=== PATIENT | female | born 1965 | race Caucasian/White ===

== ENCOUNTER 2019-01-17 18:01 | Inpatient (IN) ==
[2019-01-17] MEDS ORDERED: *HR* EPINEPHrine 0.3 MG/0.3 ML (PEN) IM PRN (23:36)
[2019-01-18] MEDS: Ipratropium Neb 0.5 MG NEBULIZER IH SCH ×3 (01:15→16:34)
[2019-01-18] MEDS: *HR* OxyCODONE Immed Rel 5 MG TABLET PO SCH ×6 (01:26→23:06)
[2019-01-18 05:35] LABS: Basophils # 0.1 K/mcL (0.0-0.2); Basophils % 0.8 %; Eosinophils # 0.2 K/mcL (0.0-0.6); Eosinophils % 3.9 %; Hematocrit 35.9 % (35.3-44.9); Hemoglobin 10.6 g/dL (11.5-15.4); Immature Granulocytes % 1.1 % (0-4); Lymphocytes # 1.9 K/mcL (0.6-4.6); Lymphocytes % 30.6 %; Mean Corpuscular HGB Conc 29.5 g/dL (31.6-35.5); Mean Corpuscular Hemoglobin 22.7 pg (28.0-33.3); Mean Corpuscular Volume 76.9 fL (83.0-100.0); Mean Platelet Volume 10.5 fL (9.4-12.4); Monocytes # 0.4 K/mcL (0.0-1.3); Monocytes % 5.7 %; Neutrophils # 3.6 K/mcL (1.6-8.9); Platelet Count 233 K/mcL (140-400); Red Blood Count 4.67 M/mcL (3.82-4.97); Red Cell Distribution Width 18.6 % (11.5-14.5); Segmented Neutrophils % 57.9 %; White Blood Count 6.2 K/mcL (4.3-11.1)
[2019-01-18 05:43] LABS: INR 1.2; Prothrombin Time 13.1 Seconds (9.4-12.1)
[2019-01-18 05:46] LABS: Activated Partial Thrombo Time 35.7 Seconds (26.0-36.0)
[2019-01-18 06:00] LABS: eGFR For African Americans > 60 (> 60); eGFR For Non-African Americans 54 (> 60)
[2019-01-18] MEDS ORDERED: levETIRAcetam 250 MG TABLET PO SCH (09:00)
[2019-01-18] MEDS ORDERED: Spironolactone 25 MG TABLET PO SCH (09:00)
[2019-01-18] MEDS: Metoprolol XL (24 HR) Succ 50 MG TAB.ER.24H PO SCH (09:26)
[2019-01-18] MEDS: Cholecalciferol (D-3) 1,000 UNIT (25MCG) TABLET PO SCH (09:26)
[2019-01-18] MEDS: *HR* Amiodarone 200 MG TABLET PO SCH (09:27)
[2019-01-18] MEDS: Gabapentin 300 MG CAPSULE PO SCH ×3 (09:29→20:01)
[2019-01-18] MEDS: *HR* Insulin Regular U-500 500 UNIT/ML SQ SCH ×5 (09:43→19:08)
[2019-01-18] MEDS: Budesonide/Formoterol 160/4.5 1 PUFF INH IH SCH ×2 (10:42→21:01)
[2019-01-18] MEDS ORDERED: *HR* Warfarin 2.5 MG TABLET PO ONE (18:00)
[2019-01-18] MEDS ORDERED: *HR* Dextrose 50 % in Water (Syg) 50 ML SYRINGE IVP PRN (19:04)
[2019-01-18] MEDS ORDERED: Dextrose Gel 15 GM/37.5 ML TUBE PO PRN (19:05)
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
[2019-01-18] MEDS ORDERED: Albuterol 2.5 MG/3 ML NEBULIZER IH PRN (20:02)
[2019-01-18] MEDS: levETIRAcetam 250 MG TABLET PO SCH (20:05)
[2019-01-18] MEDS ORDERED: *HR* Warfarin 5 MG TABLET PO ONE (21:11)
[2019-01-19 06:28] LABS: Uric Acid 5.6 mg/dL (2.3-7.6)
[2019-01-19] MEDS ORDERED: *HR* Dextrose 50 % in Water (Vial) 50 ML VIAL IVP PRN ×2 (07:45→12:54)
[2019-01-19] MEDS: Gabapentin 300 MG CAPSULE PO SCH ×3 (08:20→20:59)
[2019-01-19] MEDS: *HR* OxyCODONE Immed Rel 5 MG TABLET PO SCH ×4 (08:20→21:03)
[2019-01-19] MEDS: Metoprolol XL (24 HR) Succ 50 MG TAB.ER.24H PO SCH (08:20)
[2019-01-19] MEDS: Cholecalciferol (D-3) 1,000 UNIT (25MCG) TABLET PO SCH (08:20)
[2019-01-19] MEDS: *HR* Amiodarone 200 MG TABLET PO SCH ×2 (08:22→21:24)
[2019-01-19 09:13] LABS: Folate 5.2 ng/mL (3.0-16.0)
[2019-01-19] MEDS: Budesonide/Formoterol 160/4.5 1 PUFF INH IH SCH ×2 (10:02→20:55)
[2019-01-19] MEDS ORDERED: Dextrose Gel 15 GM/37.5 ML TUBE PO PRN ×2 (12:54)
[2019-01-19] MEDS ORDERED: D5% in Water 1,000 ML IVC PRN (12:54)
[2019-01-19] MEDS ORDERED: MOM Conc 10 ML UD.LIQ PO ONE (14:59)
--- NOTE | 2019-01-19 15:09 | Internal Med Progress Note ---
Date of Encounter: 01/19/19 Time of Encounter: 15:00 - Assessment and plan (1) Anemia Current Visit: No Status: Acute Assessment and plan: January 19. Anemia testing shows iron 28, transferrin saturation 8%, transferrin 254, ferritin 13, B12 337, and folate 5.2. Start ferrous sulfate with ascorbic acid in a.m. Qualifiers: Anemia type: unspecified type Qualified Code(s): D64.9 - Anemia, unspecified (2) CKD (chronic kidney disease) stage 3, GFR 30-59 ml/min Current Visit: Yes Status: Chronic Assessment and plan: January 19. Monitor renal indices periodically (3) Hypertension Current Visit: Yes Status: Chronic Assessment and plan: January 19. Continue Cozaar and Toprol Qualifiers: Hypertension type: essential hypertension Qualified Code(s): I10 - Essential (primary) hypertension (4) COPD (chronic obstructive pulmonary disease) Current Visit: No Status: Chronic Assessment and plan: January 19. Continue Symbicort Qualifiers: COPD type: unspecified COPD Qualified Code(s): J44.9 - Chronic obstructive pulmonary disease, unspecified (5) Seizure disorder Current Visit: No Status: Chronic Assessment and plan: January 19. Status post vagal nerve stimulator placement. Continue Keppra. (6) Heart failure Current Visit: No Status: Chronic Assessment and plan: January 19. BN peptide improved to 101. Continue present Rx. Qualifiers: Qualified Code(s): I50.9 - Heart failure, unspecified (7) Type 2 diabetes mellitus Current Visit: No Status: Chronic Assessment and plan: January 19. Hemoglobin A1c was 9.3% on 01/15/2019. She has been started on Levemir. Continue Accu-Cheks with SSI. Qualifiers: Diabetes mellitus terminal gauger insulin use: with shelter use Diabetes mellitus complication status: with kidney complications Diabetes mellitus complication detail: with chronic kidney disease Chronic kidney disease stage: stage 3 (moderate) Qualified Code(s): E11.22 - Type 2 diabetes mellitus with diabetic chronic kidney disease; N18.3 - Chronic kidney disease, stage 3 (moderate); Z79.4 - residential (current) use of insulin (8) PAF (paroxysmal atrial fibrillation) Current Visit: No Status: Chronic Assessment and plan: January 19. Continue amiodarone and Coumadin. (9) Paraplegia Current Visit: No Status: Chronic Assessment and plan: January 19. Continue PT and OT intervention. - Subjective Interval history: January 19. She has no new complaints. - Constitutional Vitals: Temp Pulse Resp BP Pulse Ox 98.4 F 72 16 115/66 93 01/19/19 06:35 01/19/19 06:35 01/19/19 12:39 01/19/19 06:35 01/19/19 12:39 Exam: She is resting comfortably in bed and appears in no acute distress. Her affect is bright and cheerful. I reviewed her medications and lab results. Internal Medicine: Result - Labs CBC & Chem 7: 01/18/19 05:27 01/18/19 05:27 - ABG Interpretation ABG results: PT/INR, D-dimer PT 13.1 Seconds (9.4-12.1) H 01/18/19 05:27 Consult Discharge Plan - Plan Referrals: Apolonia Aguero, MINE WIRER [Primary Care Provider] - 1 week
[2019-01-19] MEDS: *HR* Warfarin 3 MG TABLET PO SCH (16:54)
[2019-01-19] MEDS: Insulin LISPRO 300 UNITS/3 ML VIAL SQ SCH ×2 (16:55→21:03)
[2019-01-19] MEDS: levETIRAcetam 250 MG TABLET PO SCH (20:58)
[2019-01-19] MEDS: Insulin DETEMIR 100 UNIT/ML X5UNITS SQ SCH (21:07)
[2019-01-20] MEDS: *HR* OxyCODONE Immed Rel 5 MG TABLET PO SCH ×5 (00:25→20:56)
[2019-01-20] MEDS: Ascorbic Acid 500 MG TABLET PO SCH (05:25)
[2019-01-20] MEDS: Cholecalciferol (D-3) 1,000 UNIT (25MCG) TABLET PO SCH (08:15)
[2019-01-20] MEDS: Metoprolol XL (24 HR) Succ 50 MG TAB.ER.24H PO SCH (08:16)
[2019-01-20] MEDS: *HR* Amiodarone 200 MG TABLET PO SCH ×2 (08:16→20:54)
[2019-01-20] MEDS: Insulin DETEMIR 100 UNIT/ML X5UNITS SQ SCH ×2 (08:16→20:55)
[2019-01-20] MEDS: Gabapentin 300 MG CAPSULE PO SCH ×3 (08:16→20:55)
[2019-01-20] MEDS: Insulin LISPRO 300 UNITS/3 ML VIAL SQ SCH ×4 (08:17→20:57)
[2019-01-20] MEDS: Budesonide/Formoterol 160/4.5 1 PUFF INH IH SCH ×2 (09:35→22:03)
[2019-01-20] MEDS: Ondansetron ODT 4 MG TAB.RAPDIS SL PRN (10:06)
[2019-01-20] MEDS: *HR* Warfarin 3 MG TABLET PO SCH (16:53)
[2019-01-20] MEDS: levETIRAcetam 250 MG TABLET PO SCH (20:56)
[2019-01-21] MEDS: *HR* OxyCODONE Immed Rel 5 MG TABLET PO SCH ×5 (00:35→21:12)
[2019-01-21] MEDS: Ascorbic Acid 500 MG TABLET PO SCH (06:03)
[2019-01-21 06:20] LABS: INR 1.5; Prothrombin Time 16.6 Seconds (9.4-12.1)
[2019-01-21] MEDS: Insulin DETEMIR 100 UNIT/ML X5UNITS SQ SCH ×2 (08:14→21:11)
[2019-01-21] MEDS: Insulin LISPRO 300 UNITS/3 ML VIAL SQ SCH ×4 (08:14→21:11)
[2019-01-21] MEDS: *HR* Amiodarone 200 MG TABLET PO SCH ×2 (08:15→21:12)
[2019-01-21] MEDS: Metoprolol XL (24 HR) Succ 50 MG TAB.ER.24H PO SCH (08:15)
[2019-01-21] MEDS: Cholecalciferol (D-3) 1,000 UNIT (25MCG) TABLET PO SCH (08:15)
[2019-01-21] MEDS: Gabapentin 300 MG CAPSULE PO SCH ×3 (08:15→21:11)
[2019-01-21] MEDS: Budesonide/Formoterol 160/4.5 1 PUFF INH IH SCH ×2 (09:53→21:40)
[2019-01-21] MEDS: MOM Conc 10 ML UD.LIQ PO SCH (14:30)
[2019-01-21] MEDS: *HR* Warfarin 2 MG TABLET PO SCH (17:01)
[2019-01-21] MEDS: levETIRAcetam 250 MG TABLET PO SCH (21:12)
[2019-01-21] MEDS: traZODone 50 MG TABLET PO SCH (21:12)
[2019-01-22] MEDS: *HR* OxyCODONE Immed Rel 5 MG TABLET PO SCH ×6 (00:55→23:59)
[2019-01-22] MEDS ORDERED: *HR* OxyCODONE Immed Rel 5 MG TABLET PO ONE (03:54)
[2019-01-22] MEDS: Ascorbic Acid 500 MG TABLET PO SCH (05:38)
[2019-01-22] MEDS: Gabapentin 300 MG CAPSULE PO SCH ×3 (08:07→20:50)
[2019-01-22] MEDS: Cholecalciferol (D-3) 1,000 UNIT (25MCG) TABLET PO SCH (08:08)
[2019-01-22] MEDS: *HR* Amiodarone 200 MG TABLET PO SCH ×2 (08:08→20:49)
[2019-01-22] MEDS: Insulin LISPRO 300 UNITS/3 ML VIAL SQ SCH ×4 (08:08→20:51)
[2019-01-22] MEDS: Metoprolol XL (24 HR) Succ 50 MG TAB.ER.24H PO SCH (08:09)
[2019-01-22] MEDS: Insulin DETEMIR 100 UNIT/ML X5UNITS SQ SCH (08:09)
[2019-01-22] MEDS: Budesonide/Formoterol 160/4.5 1 PUFF INH IH SCH ×2 (10:26→21:21)
[2019-01-22] MEDS: Ondansetron ODT 4 MG TAB.RAPDIS SL PRN (10:35)
--- NOTE | 2019-01-22 14:30 | Internal Med Progress Note ---
Date of Encounter: 01/22/19 Time of Encounter: 14:23 - Assessment and plan (1) Anemia Current Visit: No Status: Acute Assessment and plan: January 19. Anemia testing shows iron 28, transferrin saturation 8%, transferrin 254, ferritin 13, B12 337, and folate 5.2. Start ferrous sulfate with ascorbic acid in a.m. January 22. Recheck labs in a.m. Qualifiers: Anemia type: unspecified type Qualified Code(s): D64.9 - Anemia, unspecified (2) CKD (chronic kidney disease) stage 3, GFR 30-59 ml/min Current Visit: Yes Status: Chronic Assessment and plan: January 19. Monitor renal indices periodically (3) Hypertension Current Visit: Yes Status: Chronic Assessment and plan: January 19. Continue Cozaar and Toprol January 22. Blood pressure has been borderline low. Decrease Cozaar to 50 mg daily . Qualifiers: Hypertension type: essential hypertension Qualified Code(s): I10 - Essential (primary) hypertension (4) COPD (chronic obstructive pulmonary disease) Current Visit: No Status: Chronic Assessment and plan: January 19. Continue Symbicort Qualifiers: COPD type: unspecified COPD Qualified Code(s): J44.9 - Chronic obstructive pulmonary disease, unspecified (5) Seizure disorder Current Visit: No Status: Chronic Assessment and plan: January 19. Status post vagal nerve stimulator placement. Continue Keppra. (6) Heart failure Current Visit: No Status: Chronic Assessment and plan: January 19. BN peptide improved to 101. Continue present Rx. Qualifiers: Qualified Code(s): I50.9 - Heart failure, unspecified (7) Type 2 diabetes mellitus Current Visit: No Status: Chronic Assessment and plan: January 19. Hemoglobin A1c was 9.3% on 01/15/2019. She has been started on L evemir. Continue Accu-Cheks with SSI. January 22. Blood sugars inadequately controlled. Increase Levemir. Qualifiers: Diabetes mellitus superintendent container terminal insulin use: with fci use Diabetes mellitus complication status: with kidney complications Diabetes mellitus complication detail: with chronic kidney disease Chronic kidney disease stage: stage 3 (moderate) Qualified Code(s): E11.22 - Type 2 diabetes mellitus with diabetic chronic kidney disease; N18.3 - Chronic kidney disease, stage 3 (moderate); Z79.4 - halfway (current) use of insulin (8) PAF (paroxysmal atrial fibrillation) Current Visit: No Status: Chronic Assessment and plan: January 19. Continue amiodarone and Coumadin. (9) Paraplegia Current Visit: No Status: Chronic Assessment and plan: January 19. Continue PT and OT intervention. (10) Constipation Current Visit: Yes Status: Acute Assessment and plan: January 22. She received magnesium citrate yesterday without a BM yet. Start MOM every other day and continue to monitor. Qualifiers: Constipation type: unspecified constipation type Qualified Code(s): K59.00 - Constipation, unspecified - Subjective Interval history: January 19. She has no new complaints. January 22. She has no new complaints. - Constitutional Vitals: Temp Pulse Resp BP Pulse Ox 97.7 F 69 16 91/56 95 01/22/19 06:58 01/22/19 06:58 01/22/19 10:26 01/22/19 06:58 01/22/19 10:26 Exam: She is resting comfortably in bed and appears in no acute distress. Her affect is overall cheerful. I reviewed her medications, Accu-Cheks, and lab results. Internal Medicine: Result - Labs CBC & Chem 7: 01/18/19 05:27 01/18/19 05:27 - ABG Interpretation ABG results: PT/INR, D-dimer PT 16.6 Seconds (9.4-12.1) H 01/21/19 05:28 Consult Discharge Plan - Plan Referrals: Apolonia Aguero, TAPE CALENDER [Primary Care Provider] - 1 week
[2019-01-22] MEDS: MOM Conc 10 ML UD.LIQ PO SCH (16:45)
[2019-01-22] MEDS: *HR* Warfarin 2 MG TABLET PO SCH (17:37)
[2019-01-22] MEDS: levETIRAcetam 250 MG TABLET PO SCH (20:50)
[2019-01-22] MEDS: traZODone 50 MG TABLET PO SCH (20:50)
[2019-01-22] MEDS ORDERED: Insulin DETEMIR 100 UNIT/ML per UNIT SQ ONE (21:00)
[2019-01-23 05:33] LABS: Basophils % 0.7 %; Eosinophils # 0.3 K/mcL (0.0-0.6); Eosinophils % 4.4 %; Hematocrit 37.2 % (35.3-44.9); Immature Granulocytes % 0.7 % (0-4); Lymphocytes # 1.7 K/mcL (0.6-4.6); Lymphocytes % 30.3 %; Mean Corpuscular HGB Conc 29.6 g/dL (31.6-35.5); Mean Corpuscular Hemoglobin 23.4 pg (28.0-33.3); Mean Corpuscular Volume 79.1 fL (83.0-100.0); Mean Platelet Volume 10.7 fL (9.4-12.4); Monocytes # 0.3 K/mcL (0.0-1.3); Monocytes % 5.5 %; Neutrophils # 3.3 K/mcL (1.6-8.9); Platelet Count 239 K/mcL (140-400); Red Cell Distribution Width 19.8 % (11.5-14.5); Segmented Neutrophils % 58.4 %; White Blood Count 5.7 K/mcL (4.3-11.1)
[2019-01-23 05:50] LABS: Prothrombin Time 22.1 Seconds (9.4-12.1)
[2019-01-23 06:01] LABS: Calcium 8.9 mg/dL (8.6-10.3); Potassium 4.8 mEq/L (3.5-5.1)
[2019-01-23] MEDS: Ascorbic Acid 500 MG TABLET PO SCH (06:48)
[2019-01-23] MEDS: *HR* OxyCODONE Immed Rel 5 MG TABLET PO SCH ×4 (08:06→19:55)
[2019-01-23] MEDS: Gabapentin 300 MG CAPSULE PO SCH ×3 (08:06→19:56)
[2019-01-23] MEDS: Insulin LISPRO 300 UNITS/3 ML VIAL SQ SCH ×4 (08:06→20:03)
[2019-01-23] MEDS: *HR* Amiodarone 200 MG TABLET PO SCH ×2 (08:07→19:57)
[2019-01-23] MEDS: Metoprolol XL (24 HR) Succ 50 MG TAB.ER.24H PO SCH (08:07)
[2019-01-23] MEDS: Cholecalciferol (D-3) 1,000 UNIT (25MCG) TABLET PO SCH (08:07)
[2019-01-23] MEDS: Insulin DETEMIR 100 UNIT/ML X5UNITS SQ SCH ×2 (09:18→20:04)
[2019-01-23] MEDS: Budesonide/Formoterol 160/4.5 1 PUFF INH IH SCH ×2 (10:07→22:02)
[2019-01-23] MEDS: MOM Conc 10 ML UD.LIQ PO SCH (12:07)
[2019-01-23] MEDS: *HR* Warfarin 2 MG TABLET PO SCH (16:55)
[2019-01-23] MEDS: levETIRAcetam 250 MG TABLET PO SCH (19:55)
[2019-01-23] MEDS: traZODone 50 MG TABLET PO SCH (19:56)
[2019-01-24] MEDS: *HR* OxyCODONE Immed Rel 5 MG TABLET PO SCH ×5 (01:05→20:41)
[2019-01-24] MEDS: Ascorbic Acid 500 MG TABLET PO SCH (06:51)
[2019-01-24] MEDS: Insulin DETEMIR 100 UNIT/ML X5UNITS SQ SCH ×2 (08:41→20:49)
[2019-01-24] MEDS: Insulin LISPRO 300 UNITS/3 ML VIAL SQ SCH ×4 (08:41→20:49)
[2019-01-24] MEDS: *HR* Amiodarone 200 MG TABLET PO SCH ×2 (08:41→20:41)
[2019-01-24] MEDS: Gabapentin 300 MG CAPSULE PO SCH ×3 (08:42→20:41)
[2019-01-24] MEDS: Cholecalciferol (D-3) 1,000 UNIT (25MCG) TABLET PO SCH (08:42)
[2019-01-24] MEDS: Metoprolol XL (24 HR) Succ 50 MG TAB.ER.24H PO SCH (08:54)
[2019-01-24] MEDS: Budesonide/Formoterol 160/4.5 1 PUFF INH IH SCH ×2 (10:24→22:02)
[2019-01-24] MEDS: MOM Conc 10 ML UD.LIQ PO SCH (16:02)
[2019-01-24] MEDS: *HR* Warfarin 2 MG TABLET PO SCH (17:39)
[2019-01-24] MEDS: levETIRAcetam 250 MG TABLET PO SCH (20:40)
[2019-01-25] MEDS: *HR* OxyCODONE Immed Rel 5 MG TABLET PO SCH ×5 (01:00→21:31)
[2019-01-25] MEDS: Ascorbic Acid 500 MG TABLET PO SCH (06:36)
[2019-01-25 06:50] LABS: Basophils % 0.6 %; Eosinophils # 0.2 K/mcL (0.0-0.6); Eosinophils % 3.8 %; Hematocrit 35.2 % (35.3-44.9); Hemoglobin 10.4 g/dL (11.5-15.4); Immature Granulocytes % 0.6 % (0-4); Lymphocytes # 1.6 K/mcL (0.6-4.6); Lymphocytes % 30.6 %; Mean Corpuscular HGB Conc 29.5 g/dL (31.6-35.5); Mean Corpuscular Hemoglobin 23.3 pg (28.0-33.3); Mean Corpuscular Volume 78.7 fL (83.0-100.0); Mean Platelet Volume 10.8 fL (9.4-12.4); Monocytes # 0.4 K/mcL (0.0-1.3); Monocytes % 6.8 %; Platelet Count 228 K/mcL (140-400); Red Blood Count 4.47 M/mcL (3.82-4.97); Red Cell Distribution Width 19.7 % (11.5-14.5); Segmented Neutrophils % 57.6 %; White Blood Count 5.3 K/mcL (4.3-11.1)
[2019-01-25 06:58] LABS: INR 2.5; Prothrombin Time 27.8 Seconds (9.4-12.1)
[2019-01-25 07:10] LABS: BUN/Creatinine Ratio 17 (6-26); Blood Urea Nitrogen 18 mg/dL (6-20); Calcium 8.7 mg/dL (8.6-10.3); Carbon Dioxide 34 mEq/L (23-29); Chloride 99 mEq/L (98-107); Glucose 199 mg/dL (70-105); Osmolality,Calculated 291 (280-300); Potassium 4.4 mEq/L (3.5-5.1); Sodium 137 mEq/L (136-145); eGFR For African Americans > 60 (> 60); eGFR For Non-African Americans 56 (> 60)
[2019-01-25] MEDS: Cholecalciferol (D-3) 1,000 UNIT (25MCG) TABLET PO SCH (09:23)
[2019-01-25] MEDS: Metoprolol XL (24 HR) Succ 50 MG TAB.ER.24H PO SCH (09:23)
[2019-01-25] MEDS: Gabapentin 300 MG CAPSULE PO SCH ×3 (09:23→20:02)
[2019-01-25] MEDS: *HR* Amiodarone 200 MG TABLET PO SCH ×2 (09:24→20:03)
[2019-01-25] MEDS: Insulin LISPRO 300 UNITS/3 ML VIAL SQ SCH ×4 (09:31→20:04)
[2019-01-25] MEDS: Insulin DETEMIR 100 UNIT/ML X5UNITS SQ SCH ×2 (09:31→20:03)
[2019-01-25] MEDS: Budesonide/Formoterol 160/4.5 1 PUFF INH IH SCH ×2 (09:55→22:09)
[2019-01-25] MEDS: MOM Conc 10 ML UD.LIQ PO SCH (12:34)
--- NOTE | 2019-01-25 15:18 | Internal Med Progress Note ---
Date of Encounter: 01/25/19 Time of Encounter: 15:10 - Assessment and plan (1) Anemia Current Visit: No Status: Acute Assessment and plan: January 19. Anemia testing shows iron 28, transferrin saturation 8%, transferrin 254, ferritin 13, B12 337, and folate 5.2. Start ferrous sulfate with ascorbic acid in a.m. January 22. Recheck labs in a.m. January 25. Hemoglobin slightly decreased to 10.4. Continue oral ferrous sulfate with ascorbic acid. I told her if the hemoglobin does not improve she will need parenteral iron Qualifiers: Anemia type: unspecified type Qualified Code(s): D64.9 - Anemia, unspecified (2) CKD (chronic kidney disease) stage 3, GFR 30-59 ml/min Current Visit: Yes Status: Chronic Assessment and plan: January 19. Monitor renal indices periodically January 25. Creatinine decreased to 1.03. Continue to monitor. (3) Hypertension Current Visit: Yes Status: Chronic Assessment and plan: January 19. Continue Cozaar and Toprol January 22. Blood pressure has been borderline low. Decrease Cozaar to 50 mg daily. January 25. Blood pressures have stabilized. Continue lower dose Cozaar. Qualifiers: Hypertension type: essential hypertension Qualified Code(s): I10 - Essential (primary) hypertension (4) COPD (chronic obstructive pulmonary disease) Current Visit: No Status: Chronic Assessment and plan: January 19. Continue Symbicort Qualifiers: COPD type: unspecified COPD Qualified Code(s): J44.9 - Chronic obstructive pulmonary disease, unspecified (5) Seizure disorder Current Visit: No Status: Chronic Assessment and plan: January 19. Status post vagal nerve stimulator placement. Continue Keppra. (6) Heart failure Current Visit: No Status: Chronic Assessment and plan: January 19. BN peptide improved to 101. Continue present Rx. Qualifiers: Qualified Code(s): I50.9 - Heart failure, unspecified (7) Type 2 diabetes mellitus Current Visit: No Status: Chronic Assessment and plan: January 19. Hemoglobin A1c was 9.3% on 01/15/2019. She has been started on Levemir. Continue Accu-Cheks with SSI. January 22. Blood sugars inadequately controlled. Increase Levemir. January 25. Blood sugars are improving. Continue Levemir 65 units twice a day. Qualifiers: Diabetes mellitus group home insulin use: with intermodal owner operator truck driver use Diabetes mellitus complication status: with kidney complications Diabetes mellitus complication detail: with chronic kidney disease Chronic kidney disease stage: stage 3 (moderate) Qualified Code(s): E11.22 - Type 2 diabetes mellitus with diabetic chronic kidney disease; N18.3 - Chronic kidney disease, stage 3 (moderate); Z79.4 - ferry terminal agent (current) use of insulin (8) PAF (paroxysmal atrial fibrillation) Current Visit: No Status: Chronic Assessment and plan: January 19. Continue amiodarone and Coumadin. (9) Paraplegia Current Visit: No Status: Chronic Assessment and plan: January 19. Continue PT and OT intervention. (10) Constipation Current Visit: Yes Status: Acute Assessment and plan: January 22. She received magnesium citrate yesterday without a BM yet. Start MOM every other day and continue to monitor. January 25. Continue MOM every other day. Qualifiers: Constipation type: unspecified constipation type Qualified Code(s): K59.00 - Constipation, unspecified - Subjective Interval history: January 19. She has no new complaints. January 22. She has no new complaints. January 25. She has no new complaints. She reports having a large BM 2 days ago with significant lessening of her abdominal discomfort. - Constitutional Vitals: Temp Pulse Resp BP Pulse Ox 98.4 F 72 18 123/72 96 01/25/19 07:06 01/25/19 07:06 01/25/19 09:56 01/25/19 07:06 01/25/19 09:56 Exam: She is resting comfortably in bed and appears in no acute distress. Her affect is bright and cheerful. I reviewed her medications and lab results. Internal Medicine: Result - Labs CBC & Chem 7: 01/25/19 06:26 01/25/19 06:26 Labs: Short CBC 01/25/19 Range/Units 06:26 WBC 5.3 (4.3-11.1) K/mcL Hgb 10.4 L (11.5-15.4) g/dL Hct 35.2 L (35.3-44.9) % Plt Count 228 (140-400) K/mcL Neutrophils # 3.0 (1.6-8.9) K/mcL BMP 01/25/19 06:26 Sodium 137 Potassium 4.4 Chloride 99 Carbon Dioxide 34 H BUN 18 Creatinine 1.03 Glucose 199 H Calcium 8.7 - ABG Interpretation ABG results: PT/INR, D-dimer PT 27.8 Seconds (9.4-12.1) H 01/25/19 06:26 Consult Discharge Plan - Plan Referrals: Apolonia Aguero, SOUND TECHNICIAN [Primary Care Provider] - 1 week
[2019-01-25] MEDS: *HR* Warfarin 2 MG TABLET PO SCH (17:35)
[2019-01-25] MEDS: levETIRAcetam 250 MG TABLET PO SCH (20:02)
[2019-01-26] MEDS: *HR* OxyCODONE Immed Rel 5 MG TABLET PO SCH ×6 (04:00→22:42)
[2019-01-26] MEDS: Ascorbic Acid 500 MG TABLET PO SCH (06:04)
[2019-01-26] MEDS: Metoprolol XL (24 HR) Succ 50 MG TAB.ER.24H PO SCH (08:41)
[2019-01-26] MEDS: *HR* Amiodarone 200 MG TABLET PO SCH ×2 (08:41→19:53)
[2019-01-26] MEDS: Cholecalciferol (D-3) 1,000 UNIT (25MCG) TABLET PO SCH (08:41)
[2019-01-26] MEDS: Gabapentin 300 MG CAPSULE PO SCH ×3 (08:41→19:53)
[2019-01-26] MEDS: Insulin LISPRO 300 UNITS/3 ML VIAL SQ SCH ×4 (08:46→19:57)
[2019-01-26] MEDS: Insulin DETEMIR 100 UNIT/ML X5UNITS SQ SCH ×2 (09:24→19:56)
[2019-01-26] MEDS: Budesonide/Formoterol 160/4.5 1 PUFF INH IH SCH ×2 (11:44→22:40)
[2019-01-26] MEDS: MOM Conc 10 ML UD.LIQ PO SCH (15:42)
[2019-01-26] MEDS: *HR* Warfarin 2 MG TABLET PO SCH (16:55)
[2019-01-26] MEDS: levETIRAcetam 250 MG TABLET PO SCH (19:53)
[2019-01-27] MEDS: *HR* OxyCODONE Immed Rel 5 MG TABLET PO SCH ×5 (00:10→20:12)
[2019-01-27] MEDS: Ascorbic Acid 500 MG TABLET PO SCH (05:55)
[2019-01-27] MEDS: Insulin LISPRO 300 UNITS/3 ML VIAL SQ SCH ×4 (08:26→20:26)
[2019-01-27] MEDS: Gabapentin 300 MG CAPSULE PO SCH ×3 (08:27→20:17)
[2019-01-27] MEDS: *HR* Amiodarone 200 MG TABLET PO SCH ×2 (08:28→20:17)
[2019-01-27] MEDS: Cholecalciferol (D-3) 1,000 UNIT (25MCG) TABLET PO SCH (08:28)
[2019-01-27] MEDS: Metoprolol XL (24 HR) Succ 50 MG TAB.ER.24H PO SCH (08:29)
[2019-01-27] MEDS: Insulin DETEMIR 100 UNIT/ML X5UNITS SQ SCH ×2 (09:37→20:26)
[2019-01-27] MEDS: Budesonide/Formoterol 160/4.5 1 PUFF INH IH SCH ×2 (11:14→22:05)
[2019-01-27] MEDS: MOM Conc 10 ML UD.LIQ PO SCH (13:38)
[2019-01-27] MEDS: Ondansetron ODT 4 MG TAB.RAPDIS SL PRN (16:15)
[2019-01-27] MEDS: *HR* Warfarin 2 MG TABLET PO SCH (17:35)
[2019-01-27] MEDS: levETIRAcetam 250 MG TABLET PO SCH (20:18)
[2019-01-28] MEDS: *HR* OxyCODONE Immed Rel 5 MG TABLET PO SCH ×5 (00:42→19:58)
[2019-01-28] MEDS: Ascorbic Acid 500 MG TABLET PO SCH (06:15)
[2019-01-28] MEDS: Insulin LISPRO 300 UNITS/3 ML VIAL SQ SCH ×4 (07:32→20:09)
[2019-01-28] MEDS: Ondansetron ODT 4 MG TAB.RAPDIS SL PRN (07:37)
[2019-01-28] MEDS: Gabapentin 300 MG CAPSULE PO SCH ×3 (08:51→19:59)
[2019-01-28] MEDS: Metoprolol XL (24 HR) Succ 50 MG TAB.ER.24H PO SCH (08:51)
[2019-01-28] MEDS: Cholecalciferol (D-3) 1,000 UNIT (25MCG) TABLET PO SCH (08:51)
[2019-01-28] MEDS: *HR* Amiodarone 200 MG TABLET PO SCH ×2 (08:51→19:58)
[2019-01-28] MEDS: Insulin DETEMIR 100 UNIT/ML X5UNITS SQ SCH ×2 (08:57→20:07)
[2019-01-28] MEDS: Budesonide/Formoterol 160/4.5 1 PUFF INH IH SCH ×2 (10:53→21:57)
--- NOTE | 2019-01-28 16:03 | Internal Med Progress Note ---
Date of Encounter: 01/28/19 Time of Encounter: 15:55 - Assessment and plan (1) Anemia Current Visit: No Status: Acute Assessment and plan: January 19. Anemia testing shows iron 28, transferrin saturation 8%, transferrin 254, ferritin 13, B12 337, and folate 5.2. Start ferrous sulfate with ascorbic acid in a.m. January 22. Recheck labs in a.m. January 25. Hemoglobin slightly decreased to 10.4. Continue oral ferrous sulfate with ascorbic acid. I told her if the hemoglobin does not improve she will need parenteral iron January 28. Recheck labs in a.m. Qualifiers: Anemia type: unspecified type Qualified Code(s): D64.9 - Anemia, unspecified (2) CKD (chronic kidney disease) stage 3, GFR 30-59 ml/min Current Visit: Yes Status: Chronic Assessment and plan: January 19. Monitor renal indices periodically January 25. Creatinine decreased to 1.03. Continue to monitor. January 28. Recheck labs in a.m. (3) Hypertension Current Visit: Yes Status: Chronic Assessment and plan: January 19. Continue Cozaar and Toprol January 22. Blood pressure has been borderline low. Decrease Cozaar to 50 mg bora y. January 25. Blood pressures have stabilized. Continue lower dose Cozaar. Qualifiers: Hypertension type: essential hypertension Qualified Code(s): I10 - Essential (primary) hypertension (4) COPD (chronic obstructive pulmonary disease) Current Visit: No Status: Chronic Assessment and plan: January 19. Continue Symbicort Qualifiers: COPD type: unspecified COPD Qualified Code(s): J44.9 - Chronic obstructive pulmonary disease, unspecified (5) Seizure disorder Current Visit: No Status: Chronic Assessment and plan: January 19. Status post vagal nerve stimulator placement. Continue Keppra. (6) Heart failure Current Visit: No Status: Chronic Assessment and plan: January 19. BN peptide improved to 101. Continue present Rx. Qualifiers: Qualified Code(s): I50.9 - Heart failure, unspecified (7) Type 2 diabetes mellitus Current Visit: No Status: Chronic Assessment and plan: January 19. Hemoglobin A1c was 9.3% on 01/15/2019. She has been started on Levemir. Continue Accu-Cheks with SSI. January 22. Blood sugars inadequately controlled. Increase Levemir. January 25. Blood sugars are improving. Continue Levemir 65 units twice a day. January 28. Blood sugars adequately controlled. Continue present Rx Qualifiers: Diabetes mellitus chcf insulin use: with oil heaterman use Diabetes mellitus complication status: with kidney complications Diabetes mellitus complication detail: with chronic kidney disease Chronic kidney disease stage: stage 3 (moderate) Qualified Code(s): E11.22 - Type 2 diabetes mellitus with diabetic chronic kidney disease; N18.3 - Chronic kidney disease, stage 3 (moderate); Z79.4 - intermediate (current) use of insulin (8) PAF (paroxysmal atrial fibrillation) Current Visit: No Status: Chronic Assessment and plan: January 19. Continue amiodarone, Toprol, and Coumadin. (9) Paraplegia Current Visit: No Status: Chronic Assessment and plan: January 19. Continue PT and OT intervention. (10) Constipation Current Visit: Yes Status: Acute Assessment and plan: January 22. She received magnesium citrate yesterday without a BM yet. Start MOM every other day and continue to monitor. January 25. Continue MOM every other day. Qualifiers: Constipation type: unspecified constipation type Qualified Code(s): K59.00 - Constipation, unspecified - Subjective Interval history: January 19. She has no new complaints. January 22. She has no new complaints. January 25. She has no new complaints. She reports having a large BM 2 days ago with significant lessening of her abdominal discomfort. January 28. She has no new complaints. - Constitutional Vitals: Temp Pulse Resp BP Pulse Ox 98.5 F 69 18 125/78 97 01/28/19 15:36 01/28/19 15:36 01/28/19 15:36 01/28/19 15:36 01/28/19 15:36 Exam: She is resting comfortably in bed and appears in no acute distress. Her affect is cheerful. I reviewed her medications and lab results. Internal Medicine: Result - Labs CBC & Chem 7: 01/25/19 06:26 01/25/19 06:26 - ABG Interpretation ABG results: PT/INR, D-dimer PT 27.8 Seconds (9.4-12.1) H 01/25/19 06:26 Consult Discharge Plan - Plan Referrals: Apolonia Aguero, [facility] [Primary Care Provider] - 1 week
[2019-01-28] MEDS: MOM Conc 10 ML UD.LIQ PO SCH (17:29)
[2019-01-28] MEDS: *HR* Warfarin 2 MG TABLET PO SCH (17:36)
[2019-01-28] MEDS: levETIRAcetam 250 MG TABLET PO SCH (19:59)
[2019-01-29] MEDS: Ascorbic Acid 500 MG TABLET PO SCH (06:54)
[2019-01-29 08:12] LABS: Basophils % 0.6 %; Eosinophils # 0.3 K/mcL (0.0-0.6); Eosinophils % 5.7 %; Hematocrit 36.4 % (35.3-44.9); Hemoglobin 10.8 g/dL (11.5-15.4); Immature Granulocytes % 0.4 % (0-4); Lymphocytes % 36.4 %; Mean Corpuscular HGB Conc 29.7 g/dL (31.6-35.5); Mean Corpuscular Hemoglobin 23.6 pg (28.0-33.3); Mean Corpuscular Volume 79.6 fL (83.0-100.0); Monocytes # 0.4 K/mcL (0.0-1.3); Neutrophils # 2.7 K/mcL (1.6-8.9); Platelet Count 225 K/mcL (140-400); Red Blood Count 4.57 M/mcL (3.82-4.97); Red Cell Distribution Width 20.9 % (11.5-14.5); Segmented Neutrophils % 49.9 %; White Blood Count 5.4 K/mcL (4.3-11.1)
[2019-01-29 08:29] LABS: INR 2.4; Prothrombin Time 27.4 Seconds (9.4-12.1)
[2019-01-29] MEDS: *HR* OxyCODONE Immed Rel 5 MG TABLET PO SCH ×5 (08:52→21:29)
[2019-01-29] MEDS: MOM Conc 10 ML UD.LIQ PO SCH (08:52)
[2019-01-29] MEDS: Gabapentin 300 MG CAPSULE PO SCH ×3 (08:52→21:21)
[2019-01-29] MEDS: *HR* Amiodarone 200 MG TABLET PO SCH ×2 (08:52→21:21)
[2019-01-29] MEDS: Cholecalciferol (D-3) 1,000 UNIT (25MCG) TABLET PO SCH (08:52)
[2019-01-29] MEDS: Insulin LISPRO 300 UNITS/3 ML VIAL SQ SCH ×4 (08:53→21:22)
[2019-01-29] MEDS: Metoprolol XL (24 HR) Succ 50 MG TAB.ER.24H PO SCH (08:53)
[2019-01-29] MEDS: Insulin DETEMIR 100 UNIT/ML X5UNITS SQ SCH ×2 (09:53→21:22)
[2019-01-29] MEDS: Budesonide/Formoterol 160/4.5 1 PUFF INH IH SCH ×2 (10:59→21:31)
[2019-01-29 11:38] LABS: Potassium 4.4 mEq/L (3.5-5.1)
[2019-01-29] MEDS: Mag Hydrox/Al Hydrox/Simeth 30 ML UDC PO PRN (16:19)
[2019-01-29] MEDS: *HR* Warfarin 2 MG TABLET PO SCH (16:20)
[2019-01-29] MEDS: levETIRAcetam 250 MG TABLET PO SCH (21:20)
[2019-01-30] MEDS: *HR* OxyCODONE Immed Rel 5 MG TABLET PO SCH ×5 (05:11→20:56)
[2019-01-30] MEDS: Ascorbic Acid 500 MG TABLET PO SCH (06:56)
[2019-01-30] MEDS: Mag Hydrox/Al Hydrox/Simeth 30 ML UDC PO PRN (06:57)
[2019-01-30] MEDS: Insulin LISPRO 300 UNITS/3 ML VIAL SQ SCH ×4 (07:47→20:28)
[2019-01-30] MEDS: *HR* Amiodarone 200 MG TABLET PO SCH ×2 (10:50→21:06)
[2019-01-30] MEDS: Metoprolol XL (24 HR) Succ 50 MG TAB.ER.24H PO SCH (10:50)
[2019-01-30] MEDS: Gabapentin 300 MG CAPSULE PO SCH ×3 (10:50→20:56)
[2019-01-30] MEDS: Cholecalciferol (D-3) 1,000 UNIT (25MCG) TABLET PO SCH (10:50)
[2019-01-30] MEDS: Insulin DETEMIR 100 UNIT/ML X5UNITS SQ SCH ×2 (11:05→21:07)
[2019-01-30] MEDS: Budesonide/Formoterol 160/4.5 1 PUFF INH IH SCH ×2 (11:16→21:37)
[2019-01-30] MEDS: Ondansetron ODT 4 MG TAB.RAPDIS SL PRN (13:52)
[2019-01-30] MEDS: *HR* Warfarin 2 MG TABLET PO SCH (16:52)
[2019-01-30] MEDS: levETIRAcetam 250 MG TABLET PO SCH (21:05)
[2019-01-30] MEDS: ALPRAZolam 0.5 MG TABLET PO PRN (21:06)
[2019-01-31] MEDS: *HR* OxyCODONE Immed Rel 5 MG TABLET PO SCH ×5 (01:00→20:22)
[2019-01-31] MEDS: Ascorbic Acid 500 MG TABLET PO SCH (05:54)
[2019-01-31] MEDS: Insulin LISPRO 300 UNITS/3 ML VIAL SQ SCH ×4 (07:56→21:00)
[2019-01-31] MEDS: Gabapentin 300 MG CAPSULE PO SCH ×3 (07:59→20:22)
[2019-01-31] MEDS: Metoprolol XL (24 HR) Succ 50 MG TAB.ER.24H PO SCH (08:00)
[2019-01-31] MEDS: Cholecalciferol (D-3) 1,000 UNIT (25MCG) TABLET PO SCH (08:00)
[2019-01-31] MEDS: *HR* Amiodarone 200 MG TABLET PO SCH ×2 (08:00→20:23)
[2019-01-31] MEDS: MOM Conc 10 ML UD.LIQ PO SCH (08:01)
[2019-01-31] MEDS: Insulin DETEMIR 100 UNIT/ML X5UNITS SQ SCH ×2 (08:02→20:23)
[2019-01-31] MEDS: Budesonide/Formoterol 160/4.5 1 PUFF INH IH SCH ×2 (11:00→21:23)
--- NOTE | 2019-01-31 14:40 | Internal Med Progress Note ---
Date of Encounter: 01/31/19 Time of Encounter: 14:30 - Assessment and plan (1) Anemia Current Visit: No Status: Acute Assessment and plan: January 19. Anemia testing shows iron 28, transferrin saturation 8%, transferrin 254, ferritin 13, B12 337, and folate 5.2. Start ferrous sulfate with ascorbic acid in a.m. January 22. Recheck labs in a.m. January 25. Hemoglobin slightly decreased to 10.4. Continue oral ferrous sulfate with ascorbic acid. I told her if the hemoglobin does not improve she will need parenteral iron January 28. Recheck labs in a.m. January 31. Hemoglobin slightly improved to 10.8 on 01/29/2019. Continue present Rx. Qualifiers: Anemia type: unspecified type Qualified Code(s): D64.9 - Anemia, unspecified (2) CKD (chronic kidney disease) stage 3, GFR 30-59 ml/min Current Visit: Yes Status: Chronic Assessment and plan: January 19. Monitor renal indices periodically January 25. Creatinine decreased to 1.03. Continue to monitor. January 28. Recheck labs in a.m. (3) Hypertension Current Visit: Yes Status: Chronic Assessment and plan: January 19. Continue Cozaar and Toprol January 22. Blood pressure has been borderline low. Decrease Cozaar to 50 mg daily. January 25. Blood pressures have stabilized. Continue lower dose Cozaar. Qualifiers: Hypertension type: essential hypertension Qualified Code(s): I10 - Essent ial (primary) hypertension (4) COPD (chronic obstructive pulmonary disease) Current Visit: No Status: Chronic Assessment and plan: January 19. Continue Symbicort Qualifiers: COPD type: unspecified COPD Qualified Code(s): J44.9 - Chronic obstructive pulmonary disease, unspecified (5) Seizure disorder Current Visit: No Status: Chronic Assessment and plan: January 19. Status post vagal nerve stimulator placement. Continue Keppra. (6) Heart failure Current Visit: No Status: Chronic Assessment and plan: January 19. BN peptide improved to 101. Continue present Rx. Qualifiers: Qualified Code(s): I50.9 - Heart failure, unspecified (7) Type 2 diabetes mellitus Current Visit: No Status: Chronic Assessment and plan: January 19. Hemoglobin A1c was 9.3% on 01/15/2019. She has been started on Levemir. Continue Accu-Cheks with SSI. January 22. Blood sugars inadequately controlled. Increase Levemir. January 25. Blood sugars are improving. Continue Levemir 65 units twice a day. January 28. Blood sugars adequately controlled. Continue present Rx Qualifiers: Diabetes mellitus fpc insulin use: with parts counterman use Diabetes mellitus complication status: with kidney complications Diabetes mellitus complication detail: with chronic kidney disease Chronic kidney disease stage: stage 3 (moderate) Qualified Code(s): E11.22 - Type 2 diabetes mellitus with diabetic chronic kidney disease; N18.3 - Chronic kidney disease, stage 3 (moderate); Z79.4 - termite exterminator (current) use of insulin (8) PAF (paroxysmal atrial fibrillation) Current Visit: No Status: Chronic Assessment and plan: January 19. Continue amiodarone, Toprol, and Coumadin. (9) Paraplegia Current Visit: No Status: Chronic Assessment and plan: January 19. Continue PT and OT intervention. (10) Constipation Current Visit: Yes Status: Acute Assessment and plan: January 22. She received magnesium citrate yesterday without a BM yet. Start MOM every other day and continue to monitor. January 25. Continue MOM every other day. January 31. She will be ordered magnesium citrate. Qualifiers: Constipation type: unspecified constipation type Qualified Code(s): K59.00 - Constipation, unspecified - Subjective Interval history: January 19. She has no new complaints. January 22. She has no new complaints. January 25. She has no new complaints. She reports having a large BM 2 days ago with significant lessening of her abdominal discomfort. January 28. She has no new complaints. January 31. She has no new complaints. She is constipated again. She anticipates discharge home tomorrow. - Constitutional Vitals: Temp Pulse Resp BP Pulse Ox 98.3 F 77 14 153/81 96 01/31/19 06:59 01/31/19 06:59 01/31/19 11:00 01/31/19 06:59 01/31/19 11:00 Exam: She is resting comfortably in bed and appears in no acute distress. Her affect is overall cheerful. I reviewed her medications and lab results. Internal Medicine: Result - Labs CBC & Chem 7: 01/29/19 06:54 01/29/19 06:54 - ABG Interpretation ABG results: PT/INR, D-dimer PT 27.4 Seconds (9.4-12.1) H 01/29/19 06:54 Consult Discharge Plan - Plan Referrals: Apolonia Aguero, [facility] [Primary Care Provider] - 1 week
[2019-01-31] MEDS: *HR* Warfarin 2 MG TABLET PO SCH (17:07)
[2019-01-31] MEDS: levETIRAcetam 250 MG TABLET PO SCH (20:22)
[2019-01-31] MEDS: ALPRAZolam 0.5 MG TABLET PO PRN (20:23)
[2019-02-01] MEDS: Ascorbic Acid 500 MG TABLET PO SCH (05:51)
[2019-02-01 07:02] VITALS: BP 151/77
[2019-02-01] MEDS: *HR* Amiodarone 200 MG TABLET PO SCH (09:25)
[2019-02-01] MEDS: Metoprolol XL (24 HR) Succ 50 MG TAB.ER.24H PO SCH (09:25)
[2019-02-01] MEDS: Cholecalciferol (D-3) 1,000 UNIT (25MCG) TABLET PO SCH (09:25)
[2019-02-01] MEDS: Gabapentin 300 MG CAPSULE PO SCH (09:26)
[2019-02-01] MEDS: Insulin DETEMIR 100 UNIT/ML X5UNITS SQ SCH (09:31)
[2019-02-01] MEDS: Insulin LISPRO 300 UNITS/3 ML VIAL SQ SCH ×2 (09:31→14:01)
[2019-02-01] MEDS: *HR* OxyCODONE Immed Rel 5 MG TABLET PO SCH ×3 (09:33→13:58)
[2019-02-01] MEDS: Budesonide/Formoterol 160/4.5 1 PUFF INH IH SCH (09:55)
--- NOTE | 2019-02-01 11:00 | Discharge Summary ---
Date of Encounter: 02/01/19 Time of Encounter: 10:53 - Discharge Diagnosis (1) Anemia Priority: Primary Status: Acute Qualifiers: Anemia type: iron deficiency Iron deficiency anemia type: unspecified iron deficiency Qualified Code(s): D50.9 - Iron deficiency anemia, unspecified (2) CKD (chronic kidney disease) stage 3, GFR 30-59 ml/min Priority: Secondary Status: Chronic (3) Hypertension Priority: Secondary Status: Chronic Qualifiers: Hypertension type: essential hypertension Qualified Code(s): I10 - Essential (primary) hypertension (4) COPD (chronic obstructive pulmonary disease) Priority: Secondary Status: Chronic Qualifiers: COPD type: unspecified COPD Qualified Code(s): J44.9 - Chronic obstructive pulmonary disease, unspecified (5) Seizure disorder Priority: Secondary Status: Chronic (6) Heart failure Priority: Secondary Status: Chronic Qualifiers: Heart failure type: diastolic Heart failure chronicity: chronic Qualified Code(s): I50.32 - Chronic diastolic (congestive) heart failure (7) Type 2 diabetes mellitus Priority: Secondary Status: Chronic Qualifiers: Diabetes mellitus laborer marine terminal insulin use: with laborer marine terminal use Diabetes mellitus complication status: with kidney complications Diabetes mellitus complication detail: with chronic kidney disease Chronic kidney disease stage: stage 3 (moderate) Qualified Code(s): E11.22 - Type 2 diabetes mellitus with diabetic chronic kidney disease; N18.3 - Chronic kidney disease, stage 3 (moderate); Z79.4 - half-way (current) use of insulin (8) PAF (paroxysmal atrial fibrillation) Priority: Secondary Status: Chronic (9) Paraplegia Priority: Secondary Status: Chronic (10) Constipation Priority: Secondary Status: Acute Qualifiers: Constipation type: unspecified constipation type Qualified Code(s): K59.00 - Constipation, unspecified Hospital course: Ms. Garcia is a 53 year old female who was transferred to [facility] swing bed after [facility] hospitalizations January 02- (weakness, UTI, anemia) and January 12- (weakness, anemia, DEEJAY). Her who is her primary caregiver is currently hospitalized. She was discharged to [facility] swing bed until her social situation allows her to return home. Initial orders were written by the discharging physician at [facility]. I saw her on January 18 and performed a swing bed history and physical. Anemia testing showed iron 28, transferrin saturation 8%, transferrin 254, ferritin 13, B12 337, and folate 5.2. She was started on ferrous sulfate with ascorbic acid. Physical therapy and occupational therapy evaluations with ongoing interventions were done. She made satisfactory progress. Cozaar was decreased to 50 mg daily because of borderline hypotension. Toprol was continued at previous dose. Her blood pressures improved and she will remain on this regimen at discharge. She was placed on Levemir 65 units twice daily. Blood sugar showed excellent control on this regimen. She required very rare SSI coverage. She will remain on this regimen at discharge. There were no new problems and arrangements were complete on February 01 for her to be discharged home. She will have home health services. She will follow with her PCP Apolonia Aguero CNP within 1 week. - Time Spent with Patient Total time spent providing and/or coordinating discharge services: - Discharge Medications Prescriptions: New Warfarin [Coumadin] 4 mg PO DAILY@1800 #60 tablet Ferrous Sulfate 325 mg PO DAILY@0630 #30 tablet Insulin DETEMIR [Levemir] 65 unit SQ BID 30 Days [id number] Ascorbic Acid [Vitamin C] 500 mg PO DAILY@0630 #30 tablet Losartan Potassium 50 mg PO DAILY 365 Days tablet Continued OxyCODONE Immed Rel [Roxicodone 10 MG] 10 mg PO 5XD Gabapentin [Neurontin] 600 mg PO TID Pravastatin Sodium [Pravachol] 40 mg PO HS Venlafaxine [Effexor] 75 mg PO BID Cholecalciferol (D-3) [Vitamin D] 5,000 unit PO DAILY Amiodarone [Cordarone] 200 mg PO DAILY Clopidogrel [Plavix] 75 mg PO DAILY EPINEPHrine [Epipen] 0.3 mg IM ONCE PRN PRN Reason: Allergic Reaction LevETIRAcetam [Keppra] 2,000 mg PO HS LevETIRAcetam [Keppra] 1,500 mg PO QAM Metoprolol Succinate [Toprol Xl] 100 mg PO DAILY Budesonide/Formoterol 160/4.5 [Symbicort 160/4.5] 2 puff IH BIDR #1 inh Discontinued Insulin Regular, Human [Humulin R U-500 Kwikpen] 200 unit SQ TID Ipratropium Neb [Atrovent Neb] 0.5 mg IH Q8H PRN PRN Reason: Shortness Of Breath Losartan Potassium [Cozaar] 100 mg PO HS Spironolactone [Aldactone] 25 mg PO DAILY Home Medications: Gabapentin [Neurontin] 600 mg PO TID 04/03/15 [History] OxyCODONE Immed Rel [Roxicodone 10 MG] 10 mg PO 5XD 04/03/15 [History] Pravastatin Sodium [Pravachol] 40 mg PO HS 04/03/15 [History] Venlafaxine [Effexor] 75 mg PO BID 05/03/17 [History] Amiodarone [Cordarone] 200 mg PO DAILY 11/07/18 [History] Cholecalciferol (D-3) [Vitamin D] 5,000 unit PO DAILY 11/07/18 [History] Clopidogrel [Plavix] 75 mg PO DAILY 11/07/18 [History] EPINEPHrine [Epipen] 0.3 mg IM ONCE PRN 11/07/18 [History] LevETIRAcetam [Keppra] 1,500 mg PO QAM 11/07/18 [History] LevETIRAcetam [Keppra] 2,000 mg PO HS 11/07/18 [History] Metoprolol Succinate [Toprol Xl] 100 mg PO DAILY 11/07/18 [History] Ascorbic Acid [Vitamin C] 500 mg PO DAILY@0630 #30 tablet 02/01/19 [Rx] Budesonide/Formoterol 160/4.5 [Symbicort 160/4.5] 2 puff IH BIDR #1 inh 02/01/19 [Rx] Ferrous Sulfate 325 mg PO DAILY@0630 #30 tablet 02/01/19 [Rx] Insulin DETEMIR [Levemir] 65 unit SQ BID 30 Days [id number] 02/01/19 [Rx] Losartan Potassium 50 mg PO DAILY 365 Days tablet 02/01/19 [Rx] Warfarin [Coumadin] 4 mg PO DAILY@1800 #60 tablet 02/01/19 [Rx] Allergies/Adverse Reactions: Allergy/AdvReac Type Severity Reaction Status Date / Time aspirin [ASA] Allergy Severe Difficulty Verified 11/07/18 13:47 Breathing Penicillins Allergy Severe Difficulty Verified 01/02/19 17:07 Swallowing nicotine [From Nicoderm CQ] Allergy Mild Rash Verified 01/02/19 17:07 Sulfa (Sulfonamide Allergy Mild Hives Verified 01/02/19 17:07 Antibiotics) sulfamethoxazole Allergy Mild Hives Verified 11/07/18 13:47 [From Bactrim] trimethoprim [From Bactrim] Allergy Mild Hives Verified 01/02/19 17:07 azithromycin AdvReac Mild Palpitation Verified 01/02/19 17:07 s cephalexin [From Keflex] AdvReac Mild Nausea Verified 01/02/19 17:07 vitamin k AdvReac Mild Palpitation Uncoded 01/02/19 17:07 s Date of admission: 01/17/19 22:09 Primary care physician: Apolonia Aguero CNP Consults: 01/17/19 23:22 Consult to Occupational Therapy [CONS] Routine Comment: To evaluate, develop and implement POC. Reason for Consult: To evaluate, develop and implement POC. Does patient have active BEDREST order?: No Is patient medically & hemodynamically stable?: Yes Patient assessed for mobility or mobilized this visit?: Yes Consult to Physical Therapy [CONS] Routine Comment: To evaluate, develop and implement POC. Reason for Consult: weakness Does patient have active BEDREST order?: No Is patient medically & hemodynamically stable?: Yes Patient assessed for mobility or mobilized this visit?: Yes Consult to Cell Support Operator [CONS] Routine Reason for SW Consult: To evaluate, develop and implement POC. - Constitutional Vitals: Temp Pulse Resp BP Pulse Ox 98.4 F 69 16 151/77 95 02/01/19 07:02 02/01/19 07:02 02/01/19 07:02 02/01/19 07:02 02/01/19 07:02 - Patient Status Disposition: Home Health Service - Discharge Instructions Follow Up With: Apolonia Aguero CNP [Primary Care Provider] - 1 week - Diet and Activity Activity: resume usual activities as tolerated Diet: diabetic diet
--- NOTE | 2019-02-01 11:23 | Physician Discharge Referral ---
Home Health/Hosp Referral Info Transfer to: Home Health Attending Provider: Cameron Provider in Charge Post Discharge: PCP (Apolonia Aguero CNP) - Diagnosis (1) Anemia Priority: Primary Status: Acute (2) CKD (chronic kidney disease) stage 3, GFR 30-59 ml/min Priority: Secondary Status: Chronic (3) Hypertension Priority: Secondary Status: Chronic (4) COPD (chronic obstructive pulmonary disease) Priority: Secondary Status: Chronic (5) Seizure disorder Priority: Secondary Status: Chronic (6) Heart failure Priority: Secondary Status: Chronic (7) Type 2 diabetes mellitus Priority: Secondary Status: Chronic (8) PAF (paroxysmal atrial fibrillation) Priority: Secondary Status: Chronic (9) Paraplegia Priority: Secondary Status: Chronic (10) Constipation Priority: Secondary Status: Acute - Respiratory Orders Smoking Cessation: Smoking cessation has been advised. For more information, call the [place] Tobacco Quit Line at 3-751-QPIF-NOW. - Diet/Nutrition Diet/Nutrition Orders: No Concentrated Sweets - Activity Activity Orders: Chair - Services Needed Following services are medically necessary services: Nursing, Home Health Aide, Physical Therapy, Occupational Therapy - Transfer Medications Prescriptions: Warfarin [Coumadin] 4 mg PO DAILY@1800 #60 tablet Ferrous Sulfate 325 mg PO DAILY@0630 #30 tablet Insulin DETEMIR [Levemir] 65 unit SQ BID 30 Days [id number] Losartan Potassium 50 mg PO DAILY 365 Days tablet Budesonide/Formoterol 160/4.5 [Symbicort 160/4.5] 2 puff IH BIDR #1 inh Ascorbic Acid [Vitamin C] 500 mg PO DAILY@0630 #30 tablet Home Medications: Gabapentin [Neurontin] 600 mg PO TID 04/03/15 [History] OxyCODONE Immed Rel [Roxicodone 10 MG] 10 mg PO 5XD 04/03/15 [History] Pravastatin Sodium [Pravachol] 40 mg PO HS 04/03/15 [History] Venlafaxine [Effexor] 75 mg PO BID 05/03/17 [History] Amiodarone [Cordarone] 200 mg PO DAILY 11/07/18 [History] Cholecalciferol (D-3) [Vitamin D] 5,000 unit PO DAILY 11/07/18 [History] Clopidogrel [Plavix] 75 mg PO DAILY 11/07/18 [History] EPINEPHrine [Epipen] 0.3 mg IM ONCE PRN 11/07/18 [History] LevETIRAcetam [Keppra] 1,500 mg PO QAM 11/07/18 [History] LevETIRAcetam [Keppra] 2,000 mg PO HS 11/07/18 [History] Metoprolol Succinate [Toprol Xl] 100 mg PO DAILY 11/07/18 [History] Ascorbic Acid [Vitamin C] 500 mg PO DAILY@0630 #30 tablet 02/01/19 [Rx] Budesonide/Formoterol 160/4.5 [Symbicort 160/4.5] 2 puff IH BIDR #1 inh 02/01/19 [Rx] Ferrous Sulfate 325 mg PO DAILY@0630 #30 tablet 02/01/19 [Rx] Insulin DETEMIR [Levemir] 65 unit SQ BID 30 Days [id number] 02/01/19 [Rx] Losartan Potassium 50 mg PO DAILY 365 Days tablet 02/01/19 [Rx] Warfarin [Coumadin] 4 mg PO DAILY@1800 #60 tablet 02/01/19 [Rx] Allergies/Adverse Reactions: Allergy/AdvReac Type Severity Reaction Status Date / Time aspirin [ASA] Allergy Severe Difficulty Verified 11/07/18 13:47 Breathing Penicillins Allergy Severe Difficulty Verified 01/02/19 17:07 Swallowing nicotine [From Nicoderm CQ] Allergy Mild Rash Verified 01/02/19 17:07 Sulfa (Sulfonamide Allergy Mild Hives Verified 01/02/19 17:07 Antibiotics) sulfamethoxazole Allergy Mild Hives Verified 11/07/18 13:47 [From Bactrim] trimethoprim [From Bactrim] Allergy Mild Hives Verified 01/02/19 17:07 azithromycin AdvReac Mild Palpitation Verified 01/02/19 17:07 s cephalexin [From Keflex] AdvReac Mild Nausea Verified 01/02/19 17:07 vitamin k AdvReac Mild Palpitation Uncoded 01/02/19 17:07 s Certification: Further, I certify that my clinical findings support that this patient is homebound (i.e. absences from home require considerable and taxing effort and are for medical reasons or baptism services or infrequently or short duration when for other reasons) because: Homebound Reason: Leaving home requires considerable and taxing effort due to condition (Paraplegia) Attestation: My signature below is to certify that this patient is under my care and that I, or nurse practitioner, or a physician's data assistant working with me, has a [id number] encounter with this patient.
== END 2019-02-01 15:10 | disposition home health service (06) | DRG 945 ==
LOC: INPPIK 22:09
PROVIDERS: ADMIT Internal Medicine; ATTEND Internal Medicine

== ENCOUNTER 2019-02-02 13:42 | Inpatient (IN) ==
[2019-02-02] MEDS: Ondansetron ODT 4 MG TAB.RAPDIS SL PRN (15:57)
[2019-02-02] MEDS: *HR* Promethazine 25 MG/ML VIAL IM PRN ×2 (16:53→22:48)
[2019-02-02] MEDS: *HR* OxyCODONE Immed Rel 5 MG TABLET PO SCH ×2 (18:28→22:03)
[2019-02-02] MEDS: *HR* Warfarin 2 MG TABLET PO SCH (18:28)
[2019-02-02] MEDS: Gabapentin 300 MG CAPSULE PO SCH ×2 (18:28→22:03)
[2019-02-02] MEDS: Insulin LISPRO 300 UNITS/3 ML VIAL SQ SCH ×2 (18:30→22:04)
[2019-02-02] MEDS ORDERED: levETIRAcetam 500 MG/5 ML UDC PO SCH (21:00)
[2019-02-02] MEDS: Insulin DETEMIR 100 UNIT/ML X5UNITS SQ SCH (22:03)
[2019-02-02] MEDS: Budesonide/Formoterol 160/4.5 1 PUFF INH IH SCH (22:48)
[2019-02-03] MEDS: *HR* OxyCODONE Immed Rel 5 MG TABLET PO SCH ×5 (02:00→20:41)
[2019-02-03] MEDS: *HR* Promethazine 25 MG/ML VIAL IM PRN (06:27)
[2019-02-03 07:27] LABS: Basophils % 0.5 %; Eosinophils # 0.2 K/mcL (0.0-0.6); Eosinophils % 2.8 %; Hematocrit 39.6 % (35.3-44.9); Hemoglobin 11.9 g/dL (11.5-15.4); Immature Granulocytes % 0.4 % (0-4); Lymphocytes % 34.7 %; Mean Corpuscular HGB Conc 30.1 g/dL (31.6-35.5); Mean Corpuscular Hemoglobin 23.7 pg (28.0-33.3); Mean Corpuscular Volume 78.9 fL (83.0-100.0); Mean Platelet Volume 10.2 fL (9.4-12.4); Monocytes # 0.4 K/mcL (0.0-1.3); Monocytes % 6.4 %; Neutrophils # 3.1 K/mcL (1.6-8.9); Platelet Count 247 K/mcL (140-400); Red Blood Count 5.02 M/mcL (3.82-4.97); Red Cell Distribution Width 20.3 % (11.5-14.5); Segmented Neutrophils % 55.2 %; White Blood Count 5.6 K/mcL (4.3-11.1)
[2019-02-03 07:33] LABS: INR 2.8; Prothrombin Time 32.1 Seconds (9.4-12.1)
[2019-02-03 07:44] LABS: BUN/Creatinine Ratio 11 (6-26); Blood Urea Nitrogen 12 mg/dL (6-20); Calcium 9.3 mg/dL (8.6-10.3); Carbon Dioxide 34 mEq/L (23-29); Chloride 97 mEq/L (98-107); Glucose 152 mg/dL (70-105); Osmolality,Calculated 287 (280-300); Sodium 137 mEq/L (136-145); eGFR For African Americans > 60 (> 60); eGFR For Non-African Americans 50 (> 60)
[2019-02-03] MEDS: Insulin LISPRO 300 UNITS/3 ML VIAL SQ SCH ×4 (07:48→20:40)
[2019-02-03] MEDS: Cholecalciferol (D-3) 1,000 UNIT (25MCG) TABLET PO SCH (07:54)
[2019-02-03] MEDS: levETIRAcetam 250 MG TABLET PO SCH ×2 (07:54→20:41)
[2019-02-03] MEDS: Insulin DETEMIR 100 UNIT/ML X5UNITS SQ SCH ×2 (07:55→20:40)
[2019-02-03] MEDS: Ascorbic Acid 500 MG TABLET PO SCH (07:55)
[2019-02-03] MEDS: Gabapentin 300 MG CAPSULE PO SCH ×3 (07:55→20:41)
[2019-02-03] MEDS: Metoprolol XL (24 HR) Succ 50 MG TAB.ER.24H PO SCH (07:55)
[2019-02-03] MEDS: *HR* Amiodarone 200 MG TABLET PO SCH (07:55)
[2019-02-03] MEDS ORDERED: levETIRAcetam 500 MG/5 ML UDC PO SCH (09:00)
[2019-02-03] MEDS: Budesonide/Formoterol 160/4.5 1 PUFF INH IH SCH ×2 (09:25→22:39)
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
[2019-02-03] MEDS: *HR* Warfarin 2 MG TABLET PO SCH (17:21)
[2019-02-04] MEDS: *HR* OxyCODONE Immed Rel 5 MG TABLET PO SCH ×5 (00:27→20:39)
[2019-02-04] MEDS: Ascorbic Acid 500 MG TABLET PO SCH (06:32)
[2019-02-04] MEDS: Ondansetron ODT 4 MG TAB.RAPDIS SL PRN (06:35)
[2019-02-04] MEDS: Insulin LISPRO 300 UNITS/3 ML VIAL SQ SCH ×4 (07:34→20:37)
[2019-02-04] MEDS: Insulin DETEMIR 100 UNIT/ML X5UNITS SQ SCH ×3 (07:35→20:37)
[2019-02-04] MEDS: levETIRAcetam 250 MG TABLET PO SCH ×2 (08:55→20:40)
[2019-02-04] MEDS: Gabapentin 300 MG CAPSULE PO SCH ×3 (08:56→20:39)
[2019-02-04] MEDS: *HR* Amiodarone 200 MG TABLET PO SCH (08:56)
[2019-02-04] MEDS: Cholecalciferol (D-3) 1,000 UNIT (25MCG) TABLET PO SCH (08:56)
[2019-02-04] MEDS: Metoprolol XL (24 HR) Succ 50 MG TAB.ER.24H PO SCH (08:56)
[2019-02-04] MEDS: Budesonide/Formoterol 160/4.5 1 PUFF INH IH SCH ×2 (09:48→22:31)
[2019-02-04] MEDS: *HR* Warfarin 2 MG TABLET PO SCH (16:49)
[2019-02-05] MEDS: *HR* OxyCODONE Immed Rel 5 MG TABLET PO SCH ×5 (00:40→20:40)
[2019-02-05] MEDS: Ascorbic Acid 500 MG TABLET PO SCH (06:51)
[2019-02-05] MEDS: Insulin LISPRO 300 UNITS/3 ML VIAL SQ SCH ×4 (08:35→20:41)
[2019-02-05] MEDS: *HR* Amiodarone 200 MG TABLET PO SCH (08:37)
[2019-02-05] MEDS: Cholecalciferol (D-3) 1,000 UNIT (25MCG) TABLET PO SCH (08:37)
[2019-02-05] MEDS: levETIRAcetam 250 MG TABLET PO SCH ×2 (08:37→20:40)
[2019-02-05] MEDS: Gabapentin 300 MG CAPSULE PO SCH ×3 (08:38→20:40)
[2019-02-05] MEDS: Metoprolol XL (24 HR) Succ 50 MG TAB.ER.24H PO SCH (08:38)
[2019-02-05] MEDS: Insulin DETEMIR 100 UNIT/ML X5UNITS SQ SCH ×2 (09:11→20:40)
[2019-02-05] MEDS: Budesonide/Formoterol 160/4.5 1 PUFF INH IH SCH ×2 (10:36→22:07)
[2019-02-05] MEDS: *HR* Warfarin 2 MG TABLET PO SCH (16:49)
[2019-02-06] MEDS: *HR* OxyCODONE Immed Rel 5 MG TABLET PO SCH ×5 (01:00→20:29)
[2019-02-06] MEDS: Ascorbic Acid 500 MG TABLET PO SCH (06:17)
[2019-02-06] MEDS: levETIRAcetam 250 MG TABLET PO SCH ×2 (08:40→20:28)
[2019-02-06] MEDS: Cholecalciferol (D-3) 1,000 UNIT (25MCG) TABLET PO SCH (08:40)
[2019-02-06] MEDS: Metoprolol XL (24 HR) Succ 50 MG TAB.ER.24H PO SCH (08:40)
[2019-02-06] MEDS: *HR* Amiodarone 200 MG TABLET PO SCH (08:40)
[2019-02-06] MEDS: Gabapentin 300 MG CAPSULE PO SCH ×3 (08:40→20:29)
[2019-02-06] MEDS: Insulin LISPRO 300 UNITS/3 ML VIAL SQ SCH ×4 (08:41→20:29)
[2019-02-06] MEDS: Insulin DETEMIR 100 UNIT/ML X5UNITS SQ SCH ×2 (08:46→20:29)
[2019-02-06] MEDS: Budesonide/Formoterol 160/4.5 1 PUFF INH IH SCH ×2 (10:45→23:01)
[2019-02-06] MEDS: *HR* Warfarin 2 MG TABLET PO SCH (16:44)
--- NOTE | 2019-02-06 18:03 | Internal Med Progress Note ---
Date of Encounter: 02/06/19 Time of Encounter: 17:55 - Assessment and plan (1) CAD (coronary artery disease) Current Visit: No Status: Chronic Assessment and plan: February 06. Status post [place] with stent 2007. Continue Plavix Coumadin and metoprolol. Qualifiers: Coronary Disease-Associated Artery/Lesion type: [place] artery [place] vs. transplanted heart: [place] heart Associated angina: without angina Qualified Code(s): I25.10 - Atherosclerotic heart disease of [place] coronary artery without angina pectoris (2) Anemia Current Visit: No Status: Acute Assessment and plan: February 06. Anemia testing 01/19/2019 showed iron 28, transferrin saturation 8%, transferrin 254, ferritin 13, B12 337, and folate 5.2. Continue oral ferrous sulfate with ascorbic acid. Qualifiers: Anemia type: iron deficiency Iron deficiency anemia type: unspecified iron deficiency Qualified Code(s): D50.9 - Iron deficiency anemia, unspecified (3) Type 2 diabetes mellitus Current Visit: No Status: Chronic Assessment and plan: February 06. Hemoglobin A1c 9.3% on 01/15/2019. Continue Levemir 65 units twice a day and Accu-Cheks with SSI. Qualifiers: Diabetes mellitus usp insulin use: with usp use Diabetes mellit complication status: with kidney complications Diabetes mellitus compl ication detail: with chronic kidney disease Chronic kidney disease stage: stage 3 (moderate) Qualified Code(s): E11.22 - Type 2 diabetes mellitus with diabetic chronic kidney disease; N18.3 - Chronic kidney disease, stage 3 (moderate); Z79.4 - senior care (current) use of insulin (4) PAF (paroxysmal atrial fibrillation) Current Visit: No Status: Chronic Assessment and plan: September 08. Continue Toprol and Coumadin. (5) CKD (chronic kidney disease) stage 3, GFR 30-59 ml/min Current Visit: No Status: Chronic Assessment and plan: February 06. Monitor renal indices. (6) Hypertension Current Visit: No Status: Chronic Assessment and plan: February 06. Continue Toprol and Cozaar. Qualifiers: Hypertension type: essential hypertension Qualified Code(s): I10 - Essential (primary) hypertension (7) Depression Current Visit: Yes Status: Acute Assessment and plan: Start Zoloft. Qualifiers: Depression Type: unspecified Qualified Code(s): F32.9 - Major depressive disorder, single episode, unspecified (8) Constipation Current Visit: No Status: Acute Assessment and plan: February 06. Schedule MOM. Qualifiers: Constipation type: unspecified constipation type Qualified Code(s): K59.00 - Constipation, unspecified - Subjective Interval history: February 06. She has no new complaints except she feels sad at times and cries. - Constitutional Vitals: Temp Pulse Resp BP Pulse Ox 98.2 F 75 16 145/83 92 02/06/19 06:40 02/06/19 06:40 02/06/19 10:45 02/06/19 06:40 02/06/19 10:45 Exam: She is resting comfortably in bed and appears in no acute distress. Her affect is overall cheerful. I reviewed her medications, vitals, and lab results. Internal Medicine: Result - Labs CBC & Chem 7: 02/03/19 07:18 02/03/19 07:18 - ABG Interpretation ABG results: PT/INR, D-dimer PT 32.1 Seconds (9.4-12.1) H 02/03/19 07:18 Consult Discharge Plan - Plan Referrals: Apolonia Aguero, [employer] [Primary Care Provider] - 1 week
[2019-02-06] MEDS: MOM Conc 10 ML UD.LIQ PO SCH (18:47)
[2019-02-07] MEDS: *HR* OxyCODONE Immed Rel 5 MG TABLET PO SCH ×5 (00:27→19:38)
[2019-02-07 06:14] LABS: INR 3.3; Prothrombin Time 36.8 Seconds (9.4-12.1)
[2019-02-07] MEDS: Ascorbic Acid 500 MG TABLET PO SCH (06:31)
[2019-02-07] MEDS: Insulin DETEMIR 100 UNIT/ML X5UNITS SQ SCH ×2 (08:24→19:37)
[2019-02-07] MEDS: *HR* Amiodarone 200 MG TABLET PO SCH (08:25)
[2019-02-07] MEDS: Insulin LISPRO 300 UNITS/3 ML VIAL SQ SCH ×4 (08:25→19:36)
[2019-02-07] MEDS: Cholecalciferol (D-3) 1,000 UNIT (25MCG) TABLET PO SCH (08:26)
[2019-02-07] MEDS: levETIRAcetam 250 MG TABLET PO SCH ×2 (08:26→19:38)
[2019-02-07] MEDS: Metoprolol XL (24 HR) Succ 50 MG TAB.ER.24H PO SCH (08:27)
[2019-02-07] MEDS: Gabapentin 300 MG CAPSULE PO SCH ×3 (08:27→19:39)
[2019-02-07] MEDS: Budesonide/Formoterol 160/4.5 1 PUFF INH IH SCH ×2 (10:14→22:22)
[2019-02-07] MEDS: ALPRAZolam 0.5 MG TABLET PO PRN (12:56)
[2019-02-07] MEDS: *HR* Warfarin 2 MG TABLET PO SCH (16:59)
[2019-02-07] MEDS: Clotrimazole 1% CRM 15 GM TUBE TP SCH (19:42)
[2019-02-08] MEDS: *HR* OxyCODONE Immed Rel 5 MG TABLET PO SCH ×5 (00:20→20:57)
[2019-02-08] MEDS: Ascorbic Acid 500 MG TABLET PO SCH (06:43)
[2019-02-08] MEDS: Metoprolol XL (24 HR) Succ 50 MG TAB.ER.24H PO SCH (08:06)
[2019-02-08] MEDS: levETIRAcetam 250 MG TABLET PO SCH ×2 (08:07→20:56)
[2019-02-08] MEDS: Cholecalciferol (D-3) 1,000 UNIT (25MCG) TABLET PO SCH (08:07)
[2019-02-08] MEDS: Clotrimazole 1% CRM 15 GM TUBE TP SCH ×2 (08:07→20:57)
[2019-02-08] MEDS: Gabapentin 300 MG CAPSULE PO SCH ×3 (08:08→20:56)
[2019-02-08] MEDS: Insulin LISPRO 300 UNITS/3 ML VIAL SQ SCH ×4 (08:08→20:57)
[2019-02-08] MEDS: *HR* Amiodarone 200 MG TABLET PO SCH (08:08)
[2019-02-08] MEDS: Ondansetron ODT 4 MG TAB.RAPDIS SL PRN (09:18)
[2019-02-08] MEDS: Insulin DETEMIR 100 UNIT/ML X5UNITS SQ SCH ×2 (09:18→20:57)
[2019-02-08] MEDS: Budesonide/Formoterol 160/4.5 1 PUFF INH IH SCH ×2 (10:03→22:13)
[2019-02-08] MEDS: *HR* Promethazine 25 MG/ML VIAL IM PRN (11:48)
[2019-02-08] MEDS: ALPRAZolam 0.5 MG TABLET PO PRN (14:59)
[2019-02-08] MEDS: MOM Conc 10 ML UD.LIQ PO SCH (16:50)
[2019-02-09] MEDS: *HR* OxyCODONE Immed Rel 5 MG TABLET PO SCH ×5 (01:12→21:57)
[2019-02-09] MEDS: Ascorbic Acid 500 MG TABLET PO SCH (06:10)
[2019-02-09 06:31] LABS: INR 3.3; Prothrombin Time 36.8 Seconds (9.4-12.1)
[2019-02-09] MEDS: Cholecalciferol (D-3) 1,000 UNIT (25MCG) TABLET PO SCH (08:56)
[2019-02-09] MEDS: *HR* Amiodarone 200 MG TABLET PO SCH (08:56)
[2019-02-09] MEDS: levETIRAcetam 250 MG TABLET PO SCH ×2 (08:56→21:15)
[2019-02-09] MEDS: Metoprolol XL (24 HR) Succ 50 MG TAB.ER.24H PO SCH (08:57)
[2019-02-09] MEDS: Clotrimazole 1% CRM 15 GM TUBE TP SCH ×2 (08:57→21:16)
[2019-02-09] MEDS: Gabapentin 300 MG CAPSULE PO SCH ×3 (08:57→21:15)
[2019-02-09] MEDS: Insulin LISPRO 300 UNITS/3 ML VIAL SQ SCH ×4 (08:58→21:24)
[2019-02-09] MEDS: Insulin DETEMIR 100 UNIT/ML X5UNITS SQ SCH ×2 (08:59→21:25)
[2019-02-09] MEDS: Ondansetron ODT 4 MG TAB.RAPDIS SL PRN (09:14)
[2019-02-09] MEDS: Budesonide/Formoterol 160/4.5 1 PUFF INH IH SCH ×2 (09:30→21:35)
[2019-02-09] MEDS ORDERED: Mag Hydrox/Al Hydrox/Simeth 30 ML UDC PO ONE (11:49)
[2019-02-09] MEDS: *HR* Promethazine 25 MG/ML VIAL IM PRN (12:14)
[2019-02-09] MEDS: *HR* Warfarin 2 MG TABLET PO SCH (17:12)
--- NOTE | 2019-02-09 17:30 | Internal Med Progress Note ---
Date of Encounter: 02/09/19 Time of Encounter: 17:20 - Assessment and plan (1) CAD (coronary artery disease) Current Visit: No Status: Chronic Assessment and plan: February 06. Status post [place] with stent 2007. Continue Plavix Coumadin and metoprolol. Qualifiers: Coronary Disease-Associated Artery/Lesion type: [place] artery [place] vs. transplanted heart: [place] heart Associated angina: without angina Qualified Code(s): I25.10 - Atherosclerotic heart disease of [place] coronary artery without angina pectoris (2) Anemia Current Visit: No Status: Acute Assessment and plan: February 06. Anemia testing 01/19/2019 showed iron 28, transferrin saturation 8%, transferrin 254, ferritin 13, B12 337, and folate 5.2. Continue oral ferrous sulfate with ascorbic acid. Qualifiers: Anemia type: iron deficiency Iron deficiency anemia type: unspecified iron deficiency Qualified Code(s): D50.9 - Iron deficiency anemia, unspecified (3) Type 2 diabetes mellitus Current Visit: No Status: Chronic Assessment and plan: February 06. Hemoglobin A1c 9.3% on 01/15/2019. Continue Levemir 65 units twice a day and Accu-Cheks with SSI. Qualifiers: Diabetes mellitus penitentiary insulin use: with penitentiary use Diabetes mellit complication status: with kidney complications Diabetes mellitus compl ication detail: with chronic kidney disease Chronic kidney disease stage: stage 3 (moderate) Qualified Code(s): E11.22 - Type 2 diabetes mellitus with diabetic chronic kidney disease; N18.3 - Chronic kidney disease, stage 3 (moderate); Z79.4 - long term care pharmacist (current) use of insulin (4) PAF (paroxysmal atrial fibrillation) Current Visit: No Status: Chronic Assessment and plan: September 08. Continue Toprol and Coumadin. (5) CKD (chronic kidney disease) stage 3, GFR 30-59 ml/min Current Visit: No Status: Chronic Assessment and plan: February 06. Monitor renal indices. (6) Hypertension Current Visit: No Status: Chronic Assessment and plan: February 06. Continue Toprol and Cozaar. Qualifiers: Hypertension type: essential hypertension Qualified Code(s): I10 - Essential (primary) hypertension (7) Depression Current Visit: Yes Status: Acute Assessment and plan: February 06. Start Zoloft. February 09. Zoloft will be discontinued since she is already taking Effexor. Qualifiers: Depression Type: unspecified Qualified Code(s): F32.9 - Major depressive disorder, single episode, unspecified (8) Constipation Current Visit: No Status: Acute Assessment and plan: February 06. Schedule MOM. Qualifiers: Constipation type: unspecified constipation type Qualified Code(s): K59.00 - Constipation, unspecified - Subjective Interval history: February 06. She has no new complaints except she feels sad at times and cries. February 09. She has no new complaints. She is experiencing occasional nausea. - Constitutional Vitals: Temp Pulse Resp BP Pulse Ox 98.0 F 68 18 127/81 92 02/09/19 06:54 02/09/19 06:54 02/09/19 09:31 02/09/19 06:54 02/09/19 09:31 Exam: She is resting comfortably in bed. Her affect is cheerful. She is in no acute distress. I reviewed her medications and lab results. Internal Medicine: Result - Labs CBC & Chem 7: 02/03/19 07:18 02/03/19 07:18 - ABG Interpretation ABG results: PT/INR, D-dimer PT 36.8 Seconds (9.4-12.1) H 02/09/19 06:12 Consult Discharge Plan - Plan Referrals: Apolonia Aguero, [employer]ER [Primary Care Provider] - 1 week
[2019-02-09] MEDS: ALPRAZolam 0.5 MG TABLET PO PRN (21:15)
[2019-02-10] MEDS: Ascorbic Acid 500 MG TABLET PO SCH (06:52)
[2019-02-10 07:01] LABS: Basophils % 0.6 %; Eosinophils # 0.3 K/mcL (0.0-0.6); Eosinophils % 4.9 %; Hematocrit 39.4 % (35.3-44.9); Hemoglobin 11.9 g/dL (11.5-15.4); Immature Granulocytes % 0.6 % (0-4); Lymphocytes # 2.1 K/mcL (0.6-4.6); Lymphocytes % 33.4 %; Mean Corpuscular HGB Conc 30.2 g/dL (31.6-35.5); Mean Corpuscular Hemoglobin 24.3 pg (28.0-33.3); Mean Corpuscular Volume 80.4 fL (83.0-100.0); Mean Platelet Volume 10.6 fL (9.4-12.4); Monocytes # 0.4 K/mcL (0.0-1.3); Neutrophils # 3.4 K/mcL (1.6-8.9); Platelet Count 208 K/mcL (140-400); Red Cell Distribution Width 20.4 % (11.5-14.5); Segmented Neutrophils % 53.5 %; White Blood Count 6.3 K/mcL (4.3-11.1)
[2019-02-10 07:12] LABS: INR 2.8
[2019-02-10 07:23] LABS: Calcium 8.9 mg/dL (8.6-10.3); Potassium 4.6 mEq/L (3.5-5.1)
[2019-02-10] MEDS: Gabapentin 300 MG CAPSULE PO SCH ×3 (09:22→19:52)
[2019-02-10] MEDS: Cholecalciferol (D-3) 1,000 UNIT (25MCG) TABLET PO SCH (09:22)
[2019-02-10] MEDS: Clotrimazole 1% CRM 15 GM TUBE TP SCH ×2 (09:22→21:53)
[2019-02-10] MEDS: *HR* Amiodarone 200 MG TABLET PO SCH (09:23)
[2019-02-10] MEDS: *HR* OxyCODONE Immed Rel 5 MG TABLET PO SCH ×5 (09:23→21:53)
[2019-02-10] MEDS: Metoprolol XL (24 HR) Succ 50 MG TAB.ER.24H PO SCH (09:23)
[2019-02-10] MEDS: Insulin LISPRO 300 UNITS/3 ML VIAL SQ SCH ×4 (09:27→19:56)
[2019-02-10] MEDS: Insulin DETEMIR 100 UNIT/ML X5UNITS SQ SCH ×2 (09:28→19:52)
[2019-02-10] MEDS: levETIRAcetam 250 MG TABLET PO SCH ×2 (09:31→19:52)
[2019-02-10] MEDS: Budesonide/Formoterol 160/4.5 1 PUFF INH IH SCH ×2 (11:18→22:00)
[2019-02-10] MEDS: ALPRAZolam 0.5 MG TABLET PO PRN (12:01)
[2019-02-10] MEDS: *HR* Warfarin 2 MG TABLET PO SCH (17:08)
[2019-02-10] MEDS: MOM Conc 10 ML UD.LIQ PO SCH (17:09)
[2019-02-11] MEDS: *HR* OxyCODONE Immed Rel 5 MG TABLET PO SCH ×5 (00:55→20:29)
[2019-02-11] MEDS: Ascorbic Acid 500 MG TABLET PO SCH (05:48)
[2019-02-11] MEDS: Cholecalciferol (D-3) 1,000 UNIT (25MCG) TABLET PO SCH (08:16)
[2019-02-11] MEDS: Gabapentin 300 MG CAPSULE PO SCH ×3 (08:16→20:29)
[2019-02-11] MEDS: Metoprolol XL (24 HR) Succ 50 MG TAB.ER.24H PO SCH (08:17)
[2019-02-11] MEDS: *HR* Amiodarone 200 MG TABLET PO SCH (08:17)
[2019-02-11] MEDS: levETIRAcetam 250 MG TABLET PO SCH ×2 (08:17→20:29)
[2019-02-11] MEDS: Clotrimazole 1% CRM 15 GM TUBE TP SCH ×2 (08:18→20:30)
[2019-02-11] MEDS: Insulin LISPRO 300 UNITS/3 ML VIAL SQ SCH ×4 (08:18→20:30)
[2019-02-11] MEDS: Insulin DETEMIR 100 UNIT/ML X5UNITS SQ SCH ×2 (09:20→20:30)
[2019-02-11] MEDS: Budesonide/Formoterol 160/4.5 1 PUFF INH IH SCH ×2 (11:13→22:33)
[2019-02-11] MEDS: *HR* Promethazine 25 MG/ML VIAL IM PRN (11:42)
[2019-02-11] MEDS: *HR* Warfarin 2 MG TABLET PO SCH (16:37)
[2019-02-12] MEDS: *HR* OxyCODONE Immed Rel 5 MG TABLET PO SCH ×5 (01:24→21:38)
[2019-02-12] MEDS: Ascorbic Acid 500 MG TABLET PO SCH (06:37)
[2019-02-12] MEDS: Insulin LISPRO 300 UNITS/3 ML VIAL SQ SCH ×4 (08:34→21:37)
[2019-02-12] MEDS: Gabapentin 300 MG CAPSULE PO SCH ×3 (08:47→21:39)
[2019-02-12] MEDS: levETIRAcetam 250 MG TABLET PO SCH ×2 (08:48→21:38)
[2019-02-12] MEDS: *HR* Amiodarone 200 MG TABLET PO SCH (08:48)
[2019-02-12] MEDS: Metoprolol XL (24 HR) Succ 50 MG TAB.ER.24H PO SCH (08:48)
[2019-02-12] MEDS: Cholecalciferol (D-3) 1,000 UNIT (25MCG) TABLET PO SCH (08:49)
[2019-02-12] MEDS: Clotrimazole 1% CRM 15 GM TUBE TP SCH ×2 (08:51→21:39)
[2019-02-12] MEDS: Ondansetron ODT 4 MG TAB.RAPDIS SL PRN (08:54)
[2019-02-12] MEDS: Insulin DETEMIR 100 UNIT/ML X5UNITS SQ SCH ×2 (09:39→22:31)
[2019-02-12] MEDS: Budesonide/Formoterol 160/4.5 1 PUFF INH IH SCH ×2 (10:24→22:38)
[2019-02-12] MEDS: *HR* Promethazine 25 MG/ML VIAL IM PRN (12:59)
--- NOTE | 2019-02-12 15:59 | Internal Med Progress Note ---
Date of Encounter: 02/12/19 Time of Encounter: 15:52 - Assessment and plan (1) CAD (coronary artery disease) Current Visit: No Status: Chronic Assessment and plan: February 06. Status post [place] with stent 2007. Continue Plavix Coumadin and metoprolol. Qualifiers: Coronary Disease-Associated Artery/Lesion type: [place] artery [place] vs. transplanted heart: [place] heart Associated angina: without angina Qualified Code(s): I25.10 - Atherosclerotic heart disease of [place] coronary artery without angina pectoris (2) Anemia Current Visit: No Status: Acute Assessment and plan: February 06. Anemia testing 01/19/2019 showed iron 28, transferrin saturation 8%, transferrin 254, ferritin 13, B12 337, and folate 5.2. Continue oral ferrous sulfate with ascorbic acid. February 12. Hemoglobin stable 11.9 on 02/10/2019. Continue to monitor. Qualifiers: Anemia type: iron deficiency Iron deficiency anemia type: unspecified iron deficiency Qualified Code(s): D50.9 - Iron deficiency anemia, unspecified (3) Type 2 diabetes mellitus Current Visit: No Status: Chronic Assessment and plan: February 06. Hemoglobin A1c 9.3% on 01/15/2019. Continue Levemir 65 units twice a day and Accu-Cheks with SSI. Qualifiers: Diabetes mellitus terminal operations supervisor insulin use: with penitentiary use Diabetes mellitus complication status: with kidney complications Diabetes mellitus complication detail: with chronic kidney disease Chronic kidney disease stage: stage 3 (moderate) Qualified Code(s): E11.22 - Type 2 diabetes mellitus with diabetic chronic kidney disease; N18.3 - Chronic kidney disease, stage 3 (moderate); Z79.4 - assisted (current) use of insulin (4) PAF (paroxysmal atrial fibrillation) Current Visit: No Status: Chronic Assessment and plan: February 06. Continue Toprol and Coumadin. (5) CKD (chronic kidney disease) stage 3, GFR 30-59 ml/min Current Visit: No Status: Chronic Assessment and plan: February 06. Monitor renal indices. (6) Hypertension Current Visit: No Status: Chronic Assessment and plan: February 06. Continue Toprol and Cozaar. Qualifiers: Hypertension type: essential hypertension Qualified Code(s): I10 - Essential (primary) hypertension (7) Depression Current Visit: Yes Status: Acute Assessment and plan: February 06. Start Zoloft. February 09. Zoloft will be discontinued since she is already taking Effexor. Qualifiers: Depression Type: unspecified Qualified Code(s): F32.9 - Major depressive disorder, single episode, unspecified (8) Constipation Current Visit: No Status: Acute Assessment and plan: February 06. Schedule MOM. Qualifiers: Constipation type: unspecified constipation type Qualified Code(s): K59.00 - Constipation, unspecified (9) Seizure disorder Current Visit: No Status: Chronic Assessment and plan: February 12. Keppra level elevated. Dose will be reduced. - Subjective Interval history: February 06. She has no new complaints except she feels sad at times and cries. February 09. She has no new complaints. She is experiencing occasional nausea. February 12. She has no new complaints. - Constitutional Vitals: Temp Pulse Resp BP Pulse Ox 98.7 F 72 14 133/69 91 02/12/19 06:55 02/12/19 06:55 02/12/19 10:24 02/12/19 06:55 02/12/19 10:24 Exam: She was resting comfortably in bed and appears in no acute distress. Her affect is overall cheerful. I reviewed her medications and lab results Internal Medicine: Result - Labs CBC & Chem 7: 02/10/19 06:39 02/10/19 06:39 - ABG Interpretation ABG results: PT/INR, D-dimer PT 32.0 Seconds (9.4-12.1) H 02/10/19 06:39 Consult Discharge Plan - Plan Referrals: Apolonia Aguero, SUPER[employer] [Primary Care Provider] - 1 week
[2019-02-12] MEDS: MOM Conc 10 ML UD.LIQ PO SCH (17:39)
[2019-02-12] MEDS: *HR* Warfarin 2 MG TABLET PO SCH (17:39)
[2019-02-13] MEDS: *HR* OxyCODONE Immed Rel 5 MG TABLET PO SCH ×5 (00:22→22:33)
[2019-02-13] MEDS: Ascorbic Acid 500 MG TABLET PO SCH (05:30)
[2019-02-13] MEDS: Metoprolol XL (24 HR) Succ 50 MG TAB.ER.24H PO SCH (07:51)
[2019-02-13] MEDS: Gabapentin 300 MG CAPSULE PO SCH ×3 (07:51→22:18)
[2019-02-13] MEDS: *HR* Amiodarone 200 MG TABLET PO SCH (07:51)
[2019-02-13] MEDS: Cholecalciferol (D-3) 1,000 UNIT (25MCG) TABLET PO SCH (07:52)
[2019-02-13] MEDS: Insulin LISPRO 300 UNITS/3 ML VIAL SQ SCH ×4 (07:52→22:18)
[2019-02-13] MEDS: Insulin DETEMIR 100 UNIT/ML X5UNITS SQ SCH ×2 (07:53→22:26)
[2019-02-13] MEDS: *HR* Promethazine 25 MG/ML VIAL IM PRN (07:53)
[2019-02-13] MEDS: Budesonide/Formoterol 160/4.5 1 PUFF INH IH SCH ×2 (09:35→21:30)
[2019-02-13] MEDS: levETIRAcetam 250 MG TABLET PO SCH (11:59)
[2019-02-13] MEDS: Clotrimazole 1% CRM 15 GM TUBE TP SCH ×2 (12:07→22:19)
[2019-02-13] MEDS: *HR* Warfarin 2 MG TABLET PO SCH (17:10)
[2019-02-13] MEDS: ALPRAZolam 0.5 MG TABLET PO PRN (22:17)
[2019-02-14] MEDS: *HR* OxyCODONE Immed Rel 5 MG TABLET PO SCH ×5 (00:19→22:11)
[2019-02-14] MEDS: Ascorbic Acid 500 MG TABLET PO SCH (06:47)
[2019-02-14] MEDS: Insulin LISPRO 300 UNITS/3 ML VIAL SQ SCH ×4 (08:30→22:12)
[2019-02-14] MEDS: *HR* Promethazine 25 MG/ML VIAL IM PRN (08:31)
[2019-02-14] MEDS: Insulin DETEMIR 100 UNIT/ML X5UNITS SQ SCH ×2 (08:34→22:16)
[2019-02-14] MEDS: Gabapentin 300 MG CAPSULE PO SCH ×3 (08:36→22:10)
[2019-02-14] MEDS: Metoprolol XL (24 HR) Succ 50 MG TAB.ER.24H PO SCH (08:37)
[2019-02-14] MEDS: ALPRAZolam 0.5 MG TABLET PO PRN ×2 (08:37→22:11)
[2019-02-14] MEDS: *HR* Amiodarone 200 MG TABLET PO SCH (08:37)
[2019-02-14] MEDS: Clotrimazole 1% CRM 15 GM TUBE TP SCH ×2 (08:38→22:14)
[2019-02-14] MEDS: levETIRAcetam 250 MG TABLET PO SCH (08:38)
[2019-02-14] MEDS: Cholecalciferol (D-3) 1,000 UNIT (25MCG) TABLET PO SCH (08:41)
[2019-02-14] MEDS: Budesonide/Formoterol 160/4.5 1 PUFF INH IH SCH ×2 (09:23→22:31)
[2019-02-14] MEDS: Benzocaine 20% 12 APPL GEL..GRAM. TP PRN ×2 (14:52→22:14)
[2019-02-14] MEDS: *HR* Warfarin 2 MG TABLET PO SCH (17:10)
[2019-02-14] MEDS: MOM Conc 10 ML UD.LIQ PO SCH (17:10)
[2019-02-15] MEDS: *HR* OxyCODONE Immed Rel 5 MG TABLET PO SCH ×5 (00:01→20:47)
[2019-02-15] MEDS: Ascorbic Acid 500 MG TABLET PO SCH (06:52)
[2019-02-15] MEDS: Insulin LISPRO 300 UNITS/3 ML VIAL SQ SCH ×4 (10:00→20:46)
[2019-02-15] MEDS: Metoprolol XL (24 HR) Succ 50 MG TAB.ER.24H PO SCH (10:05)
[2019-02-15] MEDS: Gabapentin 300 MG CAPSULE PO SCH ×3 (10:05→20:48)
[2019-02-15] MEDS: Insulin DETEMIR 100 UNIT/ML X5UNITS SQ SCH ×2 (10:06→20:45)
[2019-02-15] MEDS: *HR* Amiodarone 200 MG TABLET PO SCH (10:06)
[2019-02-15] MEDS: levETIRAcetam 250 MG TABLET PO SCH (10:11)
[2019-02-15] MEDS: Cholecalciferol (D-3) 1,000 UNIT (25MCG) TABLET PO SCH (10:12)
[2019-02-15] MEDS: Clotrimazole 1% CRM 15 GM TUBE TP SCH ×2 (10:12→20:47)
[2019-02-15] MEDS: Budesonide/Formoterol 160/4.5 1 PUFF INH IH SCH ×2 (10:17→22:20)
[2019-02-15] MEDS: ALPRAZolam 0.5 MG TABLET PO PRN ×2 (11:05→20:48)
[2019-02-15] MEDS: *HR* Warfarin 2 MG TABLET PO SCH (17:06)
[2019-02-15] MEDS: Benzocaine 20% 12 APPL GEL..GRAM. TP PRN (18:21)
[2019-02-16] MEDS: *HR* OxyCODONE Immed Rel 5 MG TABLET PO SCH ×6 (01:23→23:37)
[2019-02-16] MEDS: Ascorbic Acid 500 MG TABLET PO SCH (06:22)
[2019-02-16] MEDS: Gabapentin 300 MG CAPSULE PO SCH ×3 (09:17→21:57)
[2019-02-16] MEDS: levETIRAcetam 250 MG TABLET PO SCH (09:17)
[2019-02-16] MEDS: Cholecalciferol (D-3) 1,000 UNIT (25MCG) TABLET PO SCH (09:17)
[2019-02-16] MEDS: Metoprolol XL (24 HR) Succ 50 MG TAB.ER.24H PO SCH (09:18)
[2019-02-16] MEDS: *HR* Amiodarone 200 MG TABLET PO SCH (09:19)
[2019-02-16] MEDS: Insulin DETEMIR 100 UNIT/ML X5UNITS SQ SCH ×2 (09:19→21:56)
[2019-02-16] MEDS: Insulin LISPRO 300 UNITS/3 ML VIAL SQ SCH ×4 (09:37→21:56)
[2019-02-16] MEDS: Clotrimazole 1% CRM 15 GM TUBE TP SCH ×2 (09:39→21:58)
[2019-02-16] MEDS: Budesonide/Formoterol 160/4.5 1 PUFF INH IH SCH ×2 (10:24→22:01)
[2019-02-16] MEDS: ALPRAZolam 0.5 MG TABLET PO PRN ×3 (11:15→21:57)
[2019-02-16] MEDS: *HR* Warfarin 2 MG TABLET PO SCH (16:23)
--- NOTE | 2019-02-16 16:37 | Internal Med Progress Note ---
Date of Encounter: 02/16/19 Time of Encounter: 16:30 - Assessment and plan (1) CAD (coronary artery disease) Current Visit: No Status: Chronic Assessment and plan: February 06. Status post [place] with stent 2007. Continue Plavix Coumadin and metoprolol. Qualifiers: Coronary Disease-Associated Artery/Lesion type: [place] artery [place] vs. transplanted heart: [place] heart Associated angina: without angina Qualified Code(s): I25.10 - Atherosclerotic heart disease of [place] coronary artery without angina pectoris (2) Anemia Current Visit: No Status: Acute Assessment and plan: February 06. Anemia testing 01/19/2019 showed iron 28, transferrin saturation 8%, transferrin 254, ferritin 13, B12 337, and folate 5.2. Continue oral ferrous sulfate with ascorbic acid. February 12. Hemoglobin stable 11.9 on 02/10/2019. Continue to monitor. Qualifiers: Anemia type: iron deficiency Iron deficiency anemia type: unspecified iron deficiency Qualified Code(s): D50.9 - Iron deficiency anemia, unspecified (3) Type 2 diabetes mellitus Current Visit: No Status: Chronic Assessment and plan: February 06. Hemoglobin A1c 9.3% on 01/15/2019. Continue Levemir 65 units twice a day and Accu-Cheks with SSI. February 16. Blood sugars overall satisfactory. Continue present Rx. Qualifiers: Diabetes mellitus termite exterminator insulin use: with half-way use Diabetes mellitus complication status: with kidney complications Diabetes mellitus complication detail: with chronic kidney disease Chronic kidney disease stage: stage 3 (moderate) Qualified Code(s): E11.22 - Type 2 diabetes mellitus with diabetic chronic kidney disease; N18.3 - Chronic kidney disease, stage 3 (moderate); Z79.4 - nursing home (current) use of insulin (4) PAF (paroxysmal atrial fibrillation) Current Visit: No Status: Chronic Assessment and plan: February 06. Continue Toprol and Coumadin. (5) CKD (chronic kidney disease) stage 3, GFR 30-59 ml/min Current Visit: No Status: Chronic Assessment and plan: February 06. Monitor renal indices. (6) Hypertension Current Visit: No Status: Chronic Assessment and plan: February 06. Continue Toprol and Cozaar. Qualifiers: Hypertension type: essential hypertension Qualified Code(s): I10 - Essential (primary) hypertension (7) Depression Current Visit: Yes Status: Acute Assessment and plan: February 06. Start Zoloft. February 09. Zoloft will be discontinued since she is already taking Effexor. February 16. Increase Effexor to 75 mg every 8 hours. Qualifiers: Depression Type: unspecified Qualified Code(s): F32.9 - Major depressive disorder, single episode, unspecified (8) Constipation Current Visit: No Status: Acute Assessment and plan: February 06. Schedule MOM. Qualifiers: Constipation type: unspecified constipation type Qualified Code(s): K59.00 - Constipation, unspecified (9) Seizure disorder Current Visit: No Status: Chronic Assessment and plan: February 12. Keppra level elevated. Dose will be reduced. - Subjective Interval history: February 06. She has no new complaints except she feels sad at times and cries. February 09. She has no new complaints. She is experiencing occasional nausea. February 12. She has no new complaints. February 16. She has no new complaints. She feels more depressed today considering she is going to a alf. - Constitutional Vitals: Temp Pulse Resp BP Pulse Ox 98.4 F 68 14 123/71 95 02/16/19 07:03 02/16/19 07:03 02/16/19 10:24 02/16/19 07:03 02/16/19 10:24 Exam: She is resting comfortably in bed and appears in no acute distress. She appeared less tearful with conversation progressed. I reviewed her medications and lab results. Internal Medicine: Result - Labs CBC & Chem 7: 02/10/19 06:39 02/10/19 06:39 - ABG Interpretation ABG results: PT/INR, D-dimer PT 32.0 Seconds (9.4-12.1) H 02/10/19 06:39 Consult Discharge Plan - Plan Referrals: Apolonia Aguero, SAWING AND ASSEMBLY SUPERVISOR [Primary Care Provider] - 1 week
[2019-02-16] MEDS: MOM Conc 10 ML UD.LIQ PO SCH (17:18)
[2019-02-17] MEDS: Ascorbic Acid 500 MG TABLET PO SCH (06:31)
[2019-02-17] MEDS: Budesonide/Formoterol 160/4.5 1 PUFF INH IH SCH ×2 (09:24→22:25)
[2019-02-17] MEDS: Insulin DETEMIR 100 UNIT/ML X5UNITS SQ SCH ×2 (09:52→21:59)
[2019-02-17] MEDS: Insulin LISPRO 300 UNITS/3 ML VIAL SQ SCH ×4 (09:52→21:59)
[2019-02-17] MEDS: Gabapentin 300 MG CAPSULE PO SCH ×3 (09:53→22:01)
[2019-02-17] MEDS: Clotrimazole 1% CRM 15 GM TUBE TP SCH ×2 (09:53→22:02)
[2019-02-17] MEDS: *HR* OxyCODONE Immed Rel 5 MG TABLET PO SCH ×5 (09:54→23:42)
[2019-02-17] MEDS: Cholecalciferol (D-3) 1,000 UNIT (25MCG) TABLET PO SCH (09:54)
[2019-02-17] MEDS: Metoprolol XL (24 HR) Succ 50 MG TAB.ER.24H PO SCH (09:54)
[2019-02-17] MEDS: levETIRAcetam 250 MG TABLET PO SCH (09:54)
[2019-02-17] MEDS: *HR* Amiodarone 200 MG TABLET PO SCH (09:55)
[2019-02-17] MEDS: ALPRAZolam 0.5 MG TABLET PO PRN ×3 (10:03→22:01)
[2019-02-17] MEDS: *HR* Warfarin 2 MG TABLET PO SCH (16:59)
[2019-02-18] MEDS: *HR* OxyCODONE Immed Rel 5 MG TABLET PO SCH ×5 (01:31→21:03)
[2019-02-18] MEDS: Ascorbic Acid 500 MG TABLET PO SCH (05:41)
[2019-02-18] MEDS: ALPRAZolam 0.5 MG TABLET PO PRN ×3 (05:41→21:04)
[2019-02-18] MEDS: *HR* Amiodarone 200 MG TABLET PO SCH (08:58)
[2019-02-18] MEDS: Metoprolol XL (24 HR) Succ 50 MG TAB.ER.24H PO SCH (08:58)
[2019-02-18] MEDS: levETIRAcetam 250 MG TABLET PO SCH (09:00)
[2019-02-18] MEDS: Cholecalciferol (D-3) 1,000 UNIT (25MCG) TABLET PO SCH (09:00)
[2019-02-18] MEDS: Gabapentin 300 MG CAPSULE PO SCH ×3 (09:00→21:04)
[2019-02-18] MEDS: Clotrimazole 1% CRM 15 GM TUBE TP SCH ×2 (09:03→21:04)
[2019-02-18] MEDS: Insulin LISPRO 300 UNITS/3 ML VIAL SQ SCH ×4 (09:04→21:01)
[2019-02-18] MEDS: Insulin DETEMIR 100 UNIT/ML X5UNITS SQ SCH ×2 (09:04→21:00)
[2019-02-18] MEDS: Budesonide/Formoterol 160/4.5 1 PUFF INH IH SCH ×2 (09:50→21:54)
[2019-02-18] MEDS: Ondansetron ODT 4 MG TAB.RAPDIS SL PRN (14:16)
[2019-02-18] MEDS: *HR* Warfarin 2 MG TABLET PO SCH (18:05)
[2019-02-18] MEDS: MOM Conc 10 ML UD.LIQ PO SCH (18:05)
[2019-02-18 19:12] LABS: Bilirubin,Urine Negative (Negative); Blood,Urine Moderate (Negative); Clarity,Urine Cloudy (Clear); Color,Urine Yellow (Yellow); Glucose,Urine (UA) Normal (Normal); Ketones,Urine Negative (Negative); Leukocyte Esterase,Urine Small (Negative); Nitrite,Urine Negative (Negative); PH,Urine 5.5 pH Units (5.0-8.0); Protein,Urine 100 mg/dL (Neg-Trace); Specific Gravity,Urine >= 1.030 (1.010-1.025); Urobilinogen,Urine Normal (Normal)
[2019-02-18 19:37] LABS: WBC,Urine TNTC per hpf (0-3)
[2019-02-18 19:38] LABS: Mucus,Urine Few (Few); RBC,Urine 50-100 per hpf (0-3); Squamous Epithelial Cell,Urine Few per lpf (None-Few)
[2019-02-18 19:39] LABS: Bacteria,Urine Many per hpf (None-Few)
[2019-02-18 19:40] LABS: Renal Epithelial Cells,Urine Few per hpf (None-Few)
[2019-02-18] MEDS: Fluconazole 100 MG TABLET PO SCH (21:04)
[2019-02-19] MEDS: *HR* OxyCODONE Immed Rel 5 MG TABLET PO SCH ×5 (01:18→21:35)
[2019-02-19] MEDS: Ascorbic Acid 500 MG TABLET PO SCH (05:57)
[2019-02-19 06:29] LABS: Basophils % 0.6 %; Eosinophils # 0.4 K/mcL (0.0-0.6); Eosinophils % 5.1 %; Hematocrit 42.2 % (35.3-44.9); Hemoglobin 12.8 g/dL (11.5-15.4); Immature Granulocytes % 0.8 % (0-4); Lymphocytes # 2.4 K/mcL (0.6-4.6); Lymphocytes % 33.5 %; Mean Corpuscular HGB Conc 30.3 g/dL (31.6-35.5); Mean Corpuscular Hemoglobin 24.6 pg (28.0-33.3); Mean Corpuscular Volume 81.2 fL (83.0-100.0); Mean Platelet Volume 10.8 fL (9.4-12.4); Monocytes # 0.5 K/mcL (0.0-1.3); Monocytes % 6.9 %; Neutrophils # 3.8 K/mcL (1.6-8.9); Platelet Count 170 K/mcL (140-400); Red Cell Distribution Width 19.8 % (11.5-14.5); Segmented Neutrophils % 53.1 %; White Blood Count 7.1 K/mcL (4.3-11.1)
[2019-02-19 06:47] LABS: BUN/Creatinine Ratio 19 (6-26); Blood Urea Nitrogen 22 mg/dL (6-20); Calcium 9.4 mg/dL (8.6-10.3); Carbon Dioxide 30 mEq/L (23-29); Chloride 98 mEq/L (98-107); Glucose 272 mg/dL (70-105); Osmolality,Calculated 291 (280-300); Potassium 4.9 mEq/L (3.5-5.1); Sodium 134 mEq/L (136-145); eGFR For African Americans > 60 (> 60); eGFR For Non-African Americans 51 (> 60)
[2019-02-19 07:53] LABS: Prothrombin Time 45.3 Seconds (9.4-12.1)
[2019-02-19] MEDS: Gabapentin 300 MG CAPSULE PO SCH ×3 (08:34→21:35)
[2019-02-19] MEDS: *HR* Amiodarone 200 MG TABLET PO SCH (08:34)
[2019-02-19] MEDS: Metoprolol XL (24 HR) Succ 50 MG TAB.ER.24H PO SCH (08:35)
[2019-02-19] MEDS: levETIRAcetam 250 MG TABLET PO SCH (08:35)
[2019-02-19] MEDS: Clotrimazole 1% CRM 15 GM TUBE TP SCH ×2 (08:36→21:36)
[2019-02-19] MEDS: Cholecalciferol (D-3) 1,000 UNIT (25MCG) TABLET PO SCH (08:36)
[2019-02-19] MEDS: Insulin LISPRO 300 UNITS/3 ML VIAL SQ SCH ×4 (08:43→21:35)
[2019-02-19] MEDS: Insulin DETEMIR 100 UNIT/ML X5UNITS SQ SCH ×2 (08:50→21:35)
[2019-02-19 09:01] LABS: % Iron Saturation 14 % (15-50); Iron 46 mcg/dL (50-170); Transferrin 229 mg/dL (203-362)
[2019-02-19 09:20] LABS: Ferritin 26 ng/mL (10-120)
[2019-02-19] MEDS: Budesonide/Formoterol 160/4.5 1 PUFF INH IH SCH ×2 (09:25→21:18)
[2019-02-19] MEDS: ALPRAZolam 0.5 MG TABLET PO PRN ×2 (12:28→21:34)
--- NOTE | 2019-02-19 14:47 | Internal Med Progress Note ---
Date of Encounter: 02/19/19 Time of Encounter: 14:35 - Assessment and plan (1) CAD (coronary artery disease) Current Visit: No Status: Chronic Assessment and plan: February 06. Status post [place] with stent 2007. Continue Plavix Coumadin and metoprolol. Qualifiers: Coronary Disease-Associated Artery/Lesion type: [place] artery [place] vs. transplanted heart: [place] heart Associated angina: without angina Qualified Code(s): I25.10 - Atherosclerotic heart disease of [place] coronary artery without angina pectoris (2) Anemia Current Visit: No Status: Acute Assessment and plan: February 06. Anemia testing 01/19/2019 showed iron 28, transferrin saturation 8%, transferrin 254, ferritin 13, B12 337, and folate 5.2. Continue oral ferrous sulfate with ascorbic acid. February 12. Hemoglobin stable 11.9 on 02/10/2019. Continue to monitor. February 19. Improved with hemoglobin 12.8 and improved iron profile and ferritin. Continue present Rx. Qualifiers: Anemia type: iron deficiency Iron deficiency anemia type: unspecified iron deficiency Qualified Code(s): D50.9 - Iron deficiency anemia, unspecified (3) Type 2 diabetes mellitus Current Visit: No Status: Chronic Assessment and plan: February 06. Hemoglobin A1c 9.3% on 01/15/2019. Continue Levemir 65 units twice a day and Accu-Cheks with SSI. February 16. Blood sugars overall satisfactory. Continue present Rx. Qualifiers: Diabetes mellitus termite control representative insulin use: with snf use Diabetes mellitus complication status: with kidney complications Diabetes mellitus complication detail: with chronic kidney disease Chronic kidney disease stage: stage 3 (moderate) Qualified Code(s): E11.22 - Type 2 diabetes mellitus with diabetic chronic kidney disease; N18.3 - Chronic kidney disease, stage 3 (moderate); Z79.4 - termite control servicer (current) use of insulin (4) PAF (paroxysmal atrial fibrillation) Current Visit: No Status: Chronic Assessment and plan: February 06. Continue Toprol and Coumadin. (5) CKD (chronic kidney disease) stage 3, GFR 30-59 ml/min Current Visit: No Status: Chronic Assessment and plan: February 06. Monitor renal indices. (6) Hypertension Current Visit: No Status: Chronic Assessment and plan: February 06. Continue Toprol and Cozaar. Qualifiers: Hypertension type: essential hypertension Qualified Code(s): I10 - Essential (primary) hypertension (7) Depression Current Visit: Yes Status: Acute Assessment and plan: February 06. Start Zoloft. February 09. Zoloft will be discontinued since she is already taking Effexor. February 16. Increase Effexor to 75 mg every 8 hours. Qualifiers: Depression Type: unspecified Qualified Code(s): F32.9 - Major depressive di sorder, single episode, unspecified (8) Constipation Current Visit: No Status: Acute Assessment and plan: February 06. Schedule MOM. Qualifiers: Constipation type: unspecified constipation type Qualified Code(s): K59.00 - Constipation, unspecified (9) Seizure disorder Current Visit: No Status: Chronic Assessment and plan: February 12. Keppra level elevated. Dose will be reduced. - Subjective Interval history: February 06. She has no new complaints except she feels sad at times and cries. February 09. She has no new complaints. She is experiencing occasional nausea. February 12. She has no new complaints. February 16. She has no new complaints. She feels more depressed today considering she is going to a half-way. February 19. She has no new complaints. - Constitutional Vitals: Temp Pulse Resp BP Pulse Ox 98.4 F 76 12 122/70 91 02/19/19 06:30 02/19/19 06:30 02/19/19 09:25 02/19/19 06:30 02/19/19 09:25 Exam: She is resting comfortably in bed and appears in no acute distress. Her affect is overall cheerful. She has no extremity edema. I reviewed her medications and lab results Internal Medicine: Result - Labs CBC & Chem 7: 02/19/19 05:25 02/19/19 05:25 Labs: Short CBC 02/19/19 Range/Units 05:25 WBC 7.1 (4.3-11.1) K/mcL Hgb 12.8 (11.5-15.4) g/dL Hct 42.2 (35.3-44.9) % Plt Count 170 (140-400) K/mcL Neutrophils # 3.8 (1.6-8.9) K/mcL BMP 02/19/19 05:25 Sodium 134 L Potassium 4.9 Chloride 98 Carbon Dioxide 30 H BUN 22 H Creatinine 1.13 Glucose 272 H Calcium 9.4 Urine 02/18/19 Range/Units 18:55 Urine Color Yellow (Yellow) Urine Clarity Cloudy A (Clear) Urine pH 5.5 (5.0-8.0) pH Units Ur Specific [place] >= 1.030 H (1.010-1.025) Urine Protein 100 H (Neg-Trace) mg/dL Urine Glucose (UA) Normal (Normal) mg/dL - ABG Interpretation ABG results: PT/INR, D-dimer PT 45.3 Seconds (9.4-12.1) H* 02/19/19 05:25 Consult Discharge Plan - Plan Referrals: Apolonia Aguero, VP SECURITY [Primary Care Provider] - 1 week
[2019-02-19] MEDS: Fluconazole 100 MG TABLET PO SCH (21:35)
[2019-02-20] MEDS: *HR* OxyCODONE Immed Rel 5 MG TABLET PO SCH ×5 (01:00→20:40)
[2019-02-20] MEDS: Ascorbic Acid 500 MG TABLET PO SCH (05:57)
[2019-02-20] MEDS: Metoprolol XL (24 HR) Succ 50 MG TAB.ER.24H PO SCH (08:38)
[2019-02-20] MEDS: Cholecalciferol (D-3) 1,000 UNIT (25MCG) TABLET PO SCH (08:39)
[2019-02-20] MEDS: levETIRAcetam 250 MG TABLET PO SCH (08:40)
[2019-02-20] MEDS: *HR* Amiodarone 200 MG TABLET PO SCH (08:41)
[2019-02-20] MEDS: Gabapentin 300 MG CAPSULE PO SCH ×3 (08:41→20:42)
[2019-02-20] MEDS: Insulin LISPRO 300 UNITS/3 ML VIAL SQ SCH ×4 (08:42→20:41)
[2019-02-20] MEDS: Insulin DETEMIR 100 UNIT/ML X5UNITS SQ SCH ×2 (08:44→20:41)
[2019-02-20] MEDS: Budesonide/Formoterol 160/4.5 1 PUFF INH IH SCH ×2 (10:43→22:28)
[2019-02-20] MEDS: Clotrimazole 1% CRM 15 GM TUBE TP SCH ×2 (11:43→21:02)
[2019-02-20] MEDS: ALPRAZolam 0.5 MG TABLET PO PRN ×2 (12:08→20:42)
[2019-02-20] MEDS: *HR* Warfarin 2 MG TABLET PO SCH (17:05)
[2019-02-20] MEDS: MOM Conc 10 ML UD.LIQ PO SCH (18:39)
[2019-02-20] MEDS: Nitrofurantoin (BID) 100 MG CAPSULE PO SCH (20:40)
[2019-02-20] MEDS: Lactobacillus 1 EACH CAP.SPRINK PO SCH (20:41)
[2019-02-20] MEDS: *HR* Promethazine 25 MG/ML VIAL IM PRN (20:42)
[2019-02-21] MEDS: *HR* OxyCODONE Immed Rel 5 MG TABLET PO SCH ×3 (01:00→11:58)
[2019-02-21] MEDS: Ascorbic Acid 500 MG TABLET PO SCH (06:06)
[2019-02-21 06:20] LABS: Prothrombin Time 33.9 Seconds (9.4-12.1)
[2019-02-21 07:47] VITALS: BP 130/81
[2019-02-21] MEDS: Metoprolol XL (24 HR) Succ 50 MG TAB.ER.24H PO SCH (07:52)
[2019-02-21] MEDS: Gabapentin 300 MG CAPSULE PO SCH ×2 (07:52→15:16)
[2019-02-21] MEDS: levETIRAcetam 250 MG TABLET PO SCH (07:52)
[2019-02-21] MEDS: Nitrofurantoin (BID) 100 MG CAPSULE PO SCH (07:53)
[2019-02-21] MEDS: *HR* Amiodarone 200 MG TABLET PO SCH (07:53)
[2019-02-21] MEDS: Lactobacillus 1 EACH CAP.SPRINK PO SCH (07:53)
[2019-02-21] MEDS: Cholecalciferol (D-3) 1,000 UNIT (25MCG) TABLET PO SCH (07:54)
[2019-02-21] MEDS: Insulin LISPRO 300 UNITS/3 ML VIAL SQ SCH ×2 (07:56→11:10)
[2019-02-21] MEDS: Clotrimazole 1% CRM 15 GM TUBE TP SCH (08:04)
[2019-02-21] MEDS: Insulin DETEMIR 100 UNIT/ML X5UNITS SQ SCH (08:48)
[2019-02-21] MEDS: Budesonide/Formoterol 160/4.5 1 PUFF INH IH SCH (09:01)
[2019-02-21] MEDS: ALPRAZolam 0.5 MG TABLET PO PRN (11:09)
--- NOTE | 2019-02-21 14:36 | Discharge Summary ---
Date of Encounter: 02/21/19 Time of Encounter: 14:22 - Discharge Diagnosis (1) CAD (coronary artery disease) Priority: Primary Status: Chronic Qualifiers: Coronary Disease-Associated Artery/Lesion type: [place] artery [place] vs. transplanted heart: [place] heart Associated angina: without angina Qualified Code(s): I25.10 - Atherosclerotic heart disease of [place] coronary artery without angina pectoris (2) Anemia Priority: Secondary Status: Acute Qualifiers: Anemia type: iron deficiency Iron deficiency anemia type: unspecified iron deficiency Qualified Code(s): D50.9 - Iron deficiency anemia, unspecified (3) Type 2 diabetes mellitus Priority: Secondary Status: Chronic Qualifiers: Diabetes mellitus [facility] insulin use: with loom fixer apprentice use Diabetes mellitus complication status: with kidney complications Diabetes mellitus complication detail: with chronic kidney disease Chronic kidney disease stage: stage 3 (moderate) Qualified Code(s): E11.22 - Type 2 diabetes mellitus with diabetic chronic kidney disease; N18.3 - Chronic kidney disease, stage 3 (moderate); Z79.4 - personal lines account executive (current) use of insulin (4) PAF (paroxysmal atrial fibrillation) Priority: Secondary Status: Chronic (5) CKD (chronic kidney disease) stage 3, GFR 30-59 ml/min Priority: Secondary Status: Chronic (6) Hypertension Priority: Secondary Status: Chronic Qualifiers: Hypertension type: essential hypertension Qualified Code(s): I10 - Essential (primary) hypertension (7) Depression Priority: Secondary Status: Chronic Qualifiers: Depression Type: unspecified Qualified Code(s): F32.9 - Major depressive disorder, single episode, unspecified (8) Constipation Priority: Secondary Status: Acute Qualifiers: Constipation type: unspecified constipation type Qualified Code(s): K59.00 - Constipation, unspecified (9) Seizure disorder Priority: Secondary Status: Chronic Hospital course: Ms. Garcia is a 53 year old female who was discharged home from [facility] swing bed February 01 after January 18 admission to swing bed following [facility] hospitalization January 02- (weakness, UTI, anemia) and January 12- (weakness, anemia, DEEJAY). She states upon arrival home she developed diarrhea and was unable to care for herself. Her who is her primary caregiver was unable to meet her care needs. She returned [facility] emergency room and was referred back to [facility] swing bed for admission until SNF placement could be arranged. I saw her on February 03 and performed a swing bed history and physical. She had physical therapy and occupational therapy evaluations with ongoing intervention. She made limited progress. Social service consult was done and the patient eventually agreed for discharge to [facility] for ongoing care needs. Medicaid approval was received on February 21. Anemia testing 01/19/2019 showed iron 28, transferrin saturation 8%, transferrin 254, ferritin 13, B12 337, and folate 5.2. She will continue oral ferrous sulfate with ascorbic acid. Hemoglobin A1c was 9.3% on 01/15/2019. She will continue Levemir 65 units twice a day. She continued Toprol and Coumadin for paroxysmal atrial fibrillation. Blood pressure was well controlled. Effexor was increased to 75 mg every 8 hours to improve depression symptoms. Keppra dose returned elevated at 75 on 02/10/2019. Her Keppra dose was reduced to 1500 mg every morning. She had improved alertness and decreasing complaints of nausea and pruritus. She will be discharged today to [facility]. - Time Spent with Patient Total time spent providing and/or coordinating discharge services: - Discharge Medications Prescriptions: New Zolpidem [Ambien] 10 mg PO HS #14 tablet Warfarin [Coumadin] 3 mg PO DAILY@1800 tablet Lactobacillus [Culturelle] 1 each PO BID 3 Days cap.sprink Fluconazole [Diflucan] 100 mg PO Q24H 3 Days tablet Venlafaxine [Effexor] 75 mg PO Q8HR tablet Nitrofurantoin (BID) [Macrobid] 100 mg PO BIDWM 3 Days capsule MOM Conc [[place] conc] 10 ml PO Q48H ud.liq Zolpidem [Ambien] 10 mg PO HS 7 Days #7 tablet Continued Gabapentin [Neurontin] 600 mg PO TID Pravastatin Sodium [Pravachol] 40 mg PO HS Cholecalciferol (D-3) [Vitamin D] 5,000 unit PO DAILY Amiodarone [Cordarone] 200 mg PO DAILY Clopidogrel [Plavix] 75 mg PO DAILY LevETIRAcetam [Keppra] 1,500 mg PO QAM Metoprolol Succinate [Toprol Xl] 100 mg PO DAILY Ferrous Sulfate 325 mg PO DAILY@0630 #30 tablet Insulin DETEMIR [Levemir] 65 unit SQ BID 30 Days [id number] Ascorbic Acid [Vitamin C] 500 mg PO DAILY@0630 #30 tablet Budesonide/Formoterol 160/4.5 [Symbicort 160/4.5] 2 puff IH BIDR #1 inh Losartan Potassium 50 mg PO DAILY 365 Days tablet OxyCODONE Immed Rel [Roxicodone 10 MG] 10 mg PO 5XD 30 Days #150 tablet Discontinued Venlafaxine [Effexor] 75 mg PO BID EPINEPHrine [Epipen] 0.3 mg IM ONCE PRN PRN Reason: Allergic Reaction LevETIRAcetam [Keppra] 2,000 mg PO HS Warfarin [Coumadin] 4 mg PO DAILY@1800 #60 tablet Home Medications: Gabapentin [Neurontin] 600 mg PO TID 04/03/15 [History] Pravastatin Sodium [Pravachol] 40 mg PO HS 04/03/15 [History] Amiodarone [Cordarone] 200 mg PO DAILY 11/07/18 [History] Cholecalciferol (D-3) [Vitamin D] 5,000 unit PO DAILY 11/07/18 [History] Clopidogrel [Plavix] 75 mg PO DAILY 11/07/18 [History] LevETIRAcetam [Keppra] 1,500 mg PO QAM 11/07/18 [History] Metoprolol Succinate [Toprol Xl] 100 mg PO DAILY 11/07/18 [History] Ascorbic Acid [Vitamin C] 500 mg PO DAILY@0630 #30 tablet 02/01/19 [Rx] Budesonide/Formoterol 160/4.5 [Symbicort 160/4.5] 2 puff IH BIDR #1 inh 02/01/19 [Rx] Ferrous Sulfate 325 mg PO DAILY@0630 #30 tablet 02/01/19 [Rx] Insulin DETEMIR [Levemir] 65 unit SQ BID 30 Days [id number] 02/01/19 [Rx] Losartan Potassium 50 mg PO DAILY 365 Days tablet 02/01/19 [Rx] Fluconazole [Diflucan] 100 mg PO Q24H 3 Days tablet 02/21/19 [Rx] Lactobacillus [Culturelle] 1 each PO BID 3 Days cap.sprink 02/21/19 [Rx] MOM Conc [MILK OF [place]ESIA conc] 10 ml PO Q48H ud.liq 02/21/19 [Rx] Nitrofurantoin (BID) [Macrobid] 100 mg PO BIDWM 3 Days capsule 02/21/19 [Rx] OxyCODONE Immed Rel [Roxicodone 10 MG] 10 mg PO 5XD 30 Days #150 tablet 02/21/19 [Rx] Venlafaxine [Effexor] 75 mg PO Q8HR tablet 02/21/19 [Rx] Warfarin [Coumadin] 3 mg PO DAILY@1800 tablet 02/21/19 [Rx] Zolpidem [Ambien] 10 mg PO HS #14 tablet 02/21/19 [Rx] Zolpidem [Ambien] 10 mg PO HS 7 Days #7 tablet 02/21/19 [Rx] Allergies/Adverse Reactions: Allergy/AdvReac Type Severity Reaction Status Date / Time aspirin [ASA] Allergy Severe Difficulty Verified 11/07/18 13:47 Breathing Penicillins Allergy Severe Difficulty Verified 01/02/19 17:07 Swallowing nicotine [From Nicoderm CQ] Allergy Mild Rash Verified 01/02/19 17:07 Sulfa (Sulfonamide Allergy Mild Hives Verified 01/02/19 17:07 Antibiotics) sulfamethoxazole Allergy Mild Hives Verified 11/07/18 13:47 [From Bactrim] trimethoprim [From Bactrim] Allergy Mild Hives Verified 01/02/19 17:07 azithromycin AdvReac Mild Palpitation Verified 01/02/19 17:07 s cephalexin [From Keflex] AdvReac Mild Nausea Verified 01/02/19 17:07 vitamin k AdvReac Mild Palpitation Uncoded 01/02/19 17:07 s Date of admission: 02/02/19 14:07 Primary care physician: Apolonia Aguero CNP Consults: 02/02/19 14:34 Consult to Frame Aligner [CONS] Routine Reason for SW Consult: discharge planning/ecf placement 02/02/19 14:42 OT [Consult to Occupational Therapy] [CONS] Routine Comment: Evaluate, develop and implement POC Reason for Consult: weakness Does patient have active BEDREST order?: No Is patient medically & hemodynamically stable?: Yes Patient assessed for mobility or mobilized this visit?: Yes PT [Consult to Physical Therapy] [CONS] Routine Comment: Evaluate, develop and implement POC Reason for Consult: weakness Does patient have active BEDREST order?: No Is patient medically & hemodynamically stable?: Yes Patient assessed for mobility or mobilized this visit?: Yes - Constitutional Vitals: Temp Pulse Resp BP Pulse Ox 98.3 F 74 16 130/81 93 02/21/19 07:41 02/21/19 07:41 02/21/19 09:01 02/21/19 07:41 02/21/19 09:01 - Patient Status Disposition: Transfer SNF - Discharge Instructions Instructions: Heart Failure (DC), Chest Pain (DC), Depression (DC) - Diet and Activity Activity: as per physical therapy Diet: diabetic diet
--- NOTE | 2019-02-21 14:46 | Physician Discharge Referral ---
ExtendedCare Referral Info Transfer To: [facility] Provider in Charge: Cameron Provider in Charge after Transfer: PCP - Diagnosis (1) CAD (coronary artery disease) Priority: Primary Status: Chronic (2) Anemia Priority: Secondary Status: Acute (3) Type 2 diabetes mellitus Priority: Secondary Status: Chronic (4) PAF (paroxysmal atrial fibrillation) Priority: Secondary Status: Chronic (5) CKD (chronic kidney disease) stage 3, GFR 30-59 ml/min Priority: Secondary Status: Chronic (6) Hypertension Priority: Secondary Status: Chronic (7) Depression Priority: Secondary Status: Chronic (8) Constipation Priority: Secondary Status: Acute (9) Seizure disorder Priority: Secondary Status: Chronic Prognosis: Fair Aware of Diagnosis: Patient, Family Aware of Prognosis: Patient, Family - Transfer Medications Prescriptions: Zolpidem [Ambien] 10 mg PO HS 7 Days #7 tablet OxyCODONE Immed Rel [Roxicodone 10 MG] 10 mg PO 5XD 30 Days #150 tablet Home Medications: Gabapentin [Neurontin] 600 mg PO TID 04/03/15 [History] Pravastatin Sodium [Pravachol] 40 mg PO HS 04/03/15 [History] Amiodarone [Cordarone] 200 mg PO DAILY 11/07/18 [History] Cholecalciferol (D-3) [Vitamin D] 5,000 unit PO DAILY 11/07/18 [History] Clopidogrel [Plavix] 75 mg PO DAILY 11/07/18 [History] LevETIRAcetam [Keppra] 1,500 mg PO QAM 11/07/18 [History] Metoprolol Succinate [Toprol Xl] 100 mg PO DAILY 11/07/18 [History] Ascorbic Acid [Vitamin C] 500 mg PO DAILY@0630 #30 tablet 02/01/19 [Rx] Budesonide/Formoterol 160/4.5 [Symbicort 160/4.5] 2 puff IH BIDR #1 inh 02/01/19 [Rx] Ferrous Sulfate 325 mg PO DAILY@30 #30 tablet 02/01/19 [Rx] Insulin DETEMIR [Levemir] 65 unit SQ BID 30 Days [id number] 02/01/19 [Rx] Losartan Potassium 50 mg PO DAILY 365 Days tablet 02/01/19 [Rx] Fluconazole [Diflucan] 100 mg PO Q24H 3 Days tablet 02/21/19 [Rx] Lactobacillus [Culturelle] 1 each PO BID 3 Days cap.sprink 02/21/19 [Rx] MOM Conc [MILK OF MAGNESIA conc] 10 ml PO Q48H ud.liq 02/21/19 [Rx] Nitrofurantoin (BID) [Macrobid] 100 mg PO BIDWM 3 Days capsule 02/21/19 [Rx] OxyCODONE Immed Rel [Roxicodone 10 MG] 10 mg PO 5XD 30 Days #150 tablet 02/21/19 [Rx] Venlafaxine [Effexor] 75 mg PO Q8HR tablet 02/21/19 [Rx] Warfarin [Coumadin] 3 mg PO DAILY@1800 tablet 02/21/19 [Rx] Zolpidem [Ambien] 10 mg PO HS #14 tablet 02/21/19 [Rx] Zolpidem [Ambien] 10 mg PO HS 7 Days #7 tablet 02/21/19 [Rx] Allergies/Adverse Reactions: Allergy/AdvReac Type Severity Reaction Status Date / Time aspirin [ASA] Allergy Severe Difficulty Verified 11/07/18 13:47 Breathing Penicillins Allergy Severe Difficulty Verified 01/02/19 17:07 Swallowing nicotine [From Nicoderm CQ] Allergy Mild Rash Verified 01/02/19 17:07 Sulfa (Sulfonamide Allergy Mild Hives Verified 01/02/19 17:07 Antibiotics) sulfamethoxazole Allergy Mild Hives Verified 11/07/18 13:47 [From Bactrim] trimethoprim [From Bactrim] Allergy Mild Hives Verified 01/02/19 17:07 azithromycin AdvReac Mild Palpitation Verified 01/02/19 17:07 s cephalexin [From Keflex] AdvReac Mild Nausea Verified 01/02/19 17:07 vitamin k AdvReac Mild Palpitation Uncoded 01/02/19 17:07 s - Respiratory Orders Oxygen / L per min (2 L/m by nasal cannula as necessary to keep sat greater than 90%) Smoking Cessation: Smoking cessation has been advised. For more information, call the [place] Tobacco Quit Line at 3-637-YPSC-NOW. - Lab Orders Lab Orders: Other (include drug levels w/frequency) (CBC with differential, BMP, BNP peptide, PT/INR in 6 days) - Mobility Orders Other (Wheelchair) - Rehabiliation Orders Rehab Potential: Fair Rehab Orders: Evaluation for Physical Therapy, Evaluation for Occupational Therapy - Diet Orders No Concentrated Sweets CERTIFICATION: I certify that the transfer of the above named patient to an Extended Care Facility is necessary for the continuing treatment of the diagnosis listed. The above information is true and accurate reflection of patient's current condition. Confidential - Redisclosure prohibited without a patient's written consent.
== END 2019-02-21 15:45 | DRG 945 ==
LOC: INPPIK 14:07
PROVIDERS: ADMIT Internal Medicine; ATTEND Internal Medicine

== ENCOUNTER 2020-05-12 17:45 | Inpatient (IN) ==
[2020-05-12] MEDS ORDERED: Ipratropium/Albuterol Neb 3 ML IH PRN (17:58)
[2020-05-12] MEDS ORDERED: *HR* Warfarin 3 MG TABLET PO SCH ×2 (18:00)
[2020-05-12] MEDS ORDERED: *HR* Dextrose 50 % in Water (Vial) 50 ML VIAL IVP PRN (18:20)
[2020-05-12] MEDS ORDERED: Dextrose Gel 15 GM/37.5 ML TUBE PO PRN ×2 (18:20)
[2020-05-12] MEDS ORDERED: D5% in Water 1,000 ML IVC PRN (18:20)
[2020-05-12] MEDS ORDERED: *HR* Warfarin 2 MG TABLET PO ONE (19:11)
[2020-05-12] MEDS: Melatonin 3 MG TABLET PO PRN (19:42)
[2020-05-12] MEDS: levETIRAcetam 250 MG TABLET PO SCH (19:42)
[2020-05-12] MEDS: Insulin LISPRO 300 UNITS/3 ML VIAL SQ SCH (19:42)
[2020-05-12] MEDS: *HR* OxyCODONE Immed Rel 5 MG TABLET PO PRN (19:43)
[2020-05-12] MEDS: Gabapentin 300 MG CAPSULE PO SCH (19:43)
[2020-05-13 06:07] LABS: Basophils % 0.4 %; Eosinophils # 0.3 K/mcL (0.0-0.6); Eosinophils % 3.6 %; Hematocrit 43.4 % (35.3-44.9); Hemoglobin 12.9 g/dL (11.5-15.4); Immature Granulocytes % 0.7 % (0-4); Lymphocytes # 2.4 K/mcL (0.6-4.6); Lymphocytes % 29.5 %; Mean Corpuscular HGB Conc 29.7 g/dL (31.6-35.5); Mean Corpuscular Hemoglobin 24.9 pg (28.0-33.3); Mean Corpuscular Volume 83.6 fL (83.0-100.0); Mean Platelet Volume 11.4 fL (9.4-12.4); Monocytes # 0.6 K/mcL (0.0-1.3); Monocytes % 7.8 %; Neutrophils # 4.7 K/mcL (1.6-8.9); Platelet Count 214 K/mcL (140-400); Red Blood Count 5.19 M/mcL (3.82-4.97); Red Cell Distribution Width 16.6 % (11.5-14.5)
[2020-05-13 06:31] LABS: INR 2.2
[2020-05-13 06:32] LABS: Prothrombin Time 25.2 Seconds (9.4-12.1)
[2020-05-13 06:33] LABS: BUN/Creatinine Ratio 34 (6-26); Blood Urea Nitrogen 31 mg/dL (6-20); Calcium 8.9 mg/dL (8.6-10.3); Carbon Dioxide 31 mEq/L (23-29); Chloride 101 mEq/L (98-107); Glucose 164 mg/dL (70-105); Osmolality,Calculated 298 (280-300); Potassium 4.3 mEq/L (3.5-5.1); Sodium 139 mEq/L (136-145); eGFR For African Americans > 60 (> 60); eGFR For Non-African Americans > 60 (> 60)
[2020-05-13] MEDS: *HR* OxyCODONE Immed Rel 5 MG TABLET PO PRN ×3 (06:49→20:59)
[2020-05-13] MEDS ORDERED: *HR* Insulin Regular U-500 500 UNIT/ML SQ SCH (08:00)
[2020-05-13] MEDS: levETIRAcetam 250 MG TABLET PO SCH ×2 (08:54→20:58)
[2020-05-13] MEDS: Gabapentin 300 MG CAPSULE PO SCH ×3 (08:54→20:59)
[2020-05-13] MEDS: Metoprolol XL (24 HR) Succ 50 MG TAB.ER.24H PO SCH (08:54)
[2020-05-13] MEDS: Spironolactone 25 MG TABLET PO SCH (08:55)
[2020-05-13] MEDS: *HR* Amiodarone 200 MG TABLET PO SCH (08:55)
[2020-05-13] MEDS: Furosemide 40 MG TABLET PO SCH (08:55)
[2020-05-13] MEDS: Insulin LISPRO 300 UNITS/3 ML VIAL SQ SCH ×6 (08:55→21:00)
[2020-05-13 16:57] LABS: Bilirubin,Urine Negative (Negative); Blood,Urine Small (Negative); Clarity,Urine Clear (Clear); Color,Urine Yellow (Yellow); Glucose,Urine (UA) Normal (Normal); Ketones,Urine Negative (Negative); Leukocyte Esterase,Urine Negative (Negative); Nitrite,Urine Negative (Negative); Protein,Urine Negative (Neg-Trace); Urobilinogen,Urine Normal (Normal)
[2020-05-13] MEDS ORDERED: Insulin LISPRO 300 UNITS/3 ML VIAL SQ SCH (17:00)
[2020-05-13 17:10] LABS: Bacteria,Urine Few per hpf (None-Few); Budding Yeast,Urine Many per hpf (None Seen); Mucus,Urine Few per lpf (None-Few); WBC,Urine 0-3 per hpf (0-3)
[2020-05-13] MEDS: Fluconazole 100 MG TABLET PO SCH (17:41)
[2020-05-13] MEDS: *HR* Insulin Regular U-500 500 UNIT/ML SQ SCH (17:41)
[2020-05-13] MEDS ORDERED: Warfarin perPT PO PRN (18:00)
[2020-05-13] MEDS ORDERED: *HR* Warfarin 2 MG TABLET PO ONE (18:00)
[2020-05-13] MEDS: Melatonin 3 MG TABLET PO PRN (20:59)
[2020-05-13] MEDS: Insulin DETEMIR 100 UNIT/ML X5UNITS SQ SCH (21:00)
[2020-05-14 05:28] LABS: INR 2.5; Prothrombin Time 28.1 Seconds (9.4-12.1)
[2020-05-14] MEDS: levETIRAcetam 250 MG TABLET PO SCH ×2 (08:15→20:10)
[2020-05-14] MEDS: Fluconazole 100 MG TABLET PO SCH (08:15)
[2020-05-14] MEDS: Gabapentin 300 MG CAPSULE PO SCH ×3 (08:15→20:10)
[2020-05-14] MEDS: Metoprolol XL (24 HR) Succ 50 MG TAB.ER.24H PO SCH (08:15)
[2020-05-14] MEDS: Furosemide 40 MG TABLET PO SCH (08:15)
[2020-05-14] MEDS: *HR* Amiodarone 200 MG TABLET PO SCH (08:16)
[2020-05-14] MEDS: Spironolactone 25 MG TABLET PO SCH (08:16)
[2020-05-14] MEDS: Insulin LISPRO 300 UNITS/3 ML VIAL SQ SCH ×4 (08:24→20:16)
[2020-05-14] MEDS: *HR* Insulin Regular U-500 500 UNIT/ML SQ SCH ×3 (08:27→17:19)
[2020-05-14] MEDS: Insulin DETEMIR 100 UNIT/ML X5UNITS SQ SCH ×2 (08:28→20:16)
[2020-05-14] MEDS: *HR* OxyCODONE Immed Rel 5 MG TABLET PO PRN ×2 (08:28→17:20)
[2020-05-14] MEDS ORDERED: *HR* Warfarin 3 MG TABLET PO ONE (18:00)
[2020-05-14] MEDS: Melatonin 3 MG TABLET PO PRN (20:10)
[2020-05-15] MEDS: *HR* OxyCODONE Immed Rel 5 MG TABLET PO PRN ×2 (03:33→17:09)
[2020-05-15 05:53] LABS: INR 2.1
[2020-05-15] MEDS: Insulin LISPRO 300 UNITS/3 ML VIAL SQ SCH ×4 (07:48→20:58)
[2020-05-15] MEDS: *HR* Insulin Regular U-500 500 UNIT/ML SQ SCH ×3 (08:27→17:04)
[2020-05-15] MEDS: Fluconazole 100 MG TABLET PO SCH (08:28)
[2020-05-15] MEDS: Spironolactone 25 MG TABLET PO SCH (08:28)
[2020-05-15] MEDS: Gabapentin 300 MG CAPSULE PO SCH ×3 (08:28→20:56)
[2020-05-15] MEDS: Furosemide 40 MG TABLET PO SCH (08:28)
[2020-05-15] MEDS: Metoprolol XL (24 HR) Succ 50 MG TAB.ER.24H PO SCH (08:29)
[2020-05-15] MEDS: levETIRAcetam 250 MG TABLET PO SCH ×2 (08:29→20:57)
[2020-05-15] MEDS: Insulin DETEMIR 100 UNIT/ML X5UNITS SQ SCH ×2 (08:30→20:57)
[2020-05-15] MEDS: *HR* Amiodarone 200 MG TABLET PO SCH (08:30)
[2020-05-15] MEDS ORDERED: *HR* Warfarin 3 MG TABLET PO ONE (18:00)
[2020-05-15] MEDS: Melatonin 3 MG TABLET PO PRN (21:02)
[2020-05-16] MEDS: *HR* OxyCODONE Immed Rel 5 MG TABLET PO PRN ×2 (00:18→12:47)
[2020-05-16 07:35] LABS: Prothrombin Time 22.4 Seconds (9.4-12.1)
[2020-05-16] MEDS: Insulin LISPRO 300 UNITS/3 ML VIAL SQ SCH ×4 (08:03→20:22)
[2020-05-16] MEDS: levETIRAcetam 250 MG TABLET PO SCH ×2 (08:09→20:21)
[2020-05-16] MEDS: Fluconazole 100 MG TABLET PO SCH (08:10)
[2020-05-16] MEDS: Spironolactone 25 MG TABLET PO SCH (08:10)
[2020-05-16] MEDS: Gabapentin 300 MG CAPSULE PO SCH ×3 (08:10→20:21)
[2020-05-16] MEDS: Metoprolol XL (24 HR) Succ 50 MG TAB.ER.24H PO SCH (08:11)
[2020-05-16] MEDS: *HR* Amiodarone 200 MG TABLET PO SCH (08:11)
[2020-05-16] MEDS: Furosemide 40 MG TABLET PO SCH (08:11)
[2020-05-16] MEDS: *HR* Insulin Regular U-500 500 UNIT/ML SQ SCH ×3 (08:48→17:01)
[2020-05-16] MEDS: Insulin DETEMIR 100 UNIT/ML X5UNITS SQ SCH ×2 (08:48→20:21)
[2020-05-16] MEDS ORDERED: *HR* Warfarin 3 MG TABLET PO ONE (18:00)
[2020-05-17] MEDS: *HR* OxyCODONE Immed Rel 5 MG TABLET PO PRN ×4 (01:34→21:33)
[2020-05-17] MEDS: Melatonin 3 MG TABLET PO PRN ×2 (01:41→21:33)
[2020-05-17] MEDS: Fluconazole 100 MG TABLET PO SCH (08:15)
[2020-05-17] MEDS: Spironolactone 25 MG TABLET PO SCH (08:15)
[2020-05-17] MEDS: *HR* Amiodarone 200 MG TABLET PO SCH (08:15)
[2020-05-17] MEDS: Metoprolol XL (24 HR) Succ 50 MG TAB.ER.24H PO SCH (08:15)
[2020-05-17] MEDS: Gabapentin 300 MG CAPSULE PO SCH ×3 (08:16→21:33)
[2020-05-17] MEDS: levETIRAcetam 250 MG TABLET PO SCH ×2 (08:16→21:33)
[2020-05-17] MEDS: Furosemide 40 MG TABLET PO SCH (08:16)
[2020-05-17] MEDS: *HR* Insulin Regular U-500 500 UNIT/ML SQ SCH ×3 (08:26→16:33)
[2020-05-17] MEDS: Insulin DETEMIR 100 UNIT/ML X5UNITS SQ SCH ×2 (08:26→21:34)
[2020-05-17] MEDS: Insulin LISPRO 300 UNITS/3 ML VIAL SQ SCH ×4 (08:26→21:34)
[2020-05-17 08:28] LABS: INR 2.3; Prothrombin Time 26.6 Seconds (9.4-12.1)
[2020-05-17] MEDS: Chloraseptic Spray 177 ML BOTTLE MM PRN (12:45)
[2020-05-17] MEDS ORDERED: *HR* LORazepam 2 MG/ML VIAL IVP ONE (15:53)
[2020-05-17] MEDS ORDERED: *HR* LORazepam 2 MG/ML VIAL ONE (15:54)
[2020-05-17] MEDS: *HR* Warfarin 3 MG TABLET PO SCH (17:34)
[2020-05-17] MEDS ORDERED: ALPRAZolam 0.5 MG TABLET PO ONE (22:11)
[2020-05-18] MEDS: levETIRAcetam 250 MG TABLET PO SCH ×2 (08:44→22:18)
[2020-05-18] MEDS: Metoprolol XL (24 HR) Succ 50 MG TAB.ER.24H PO SCH (08:45)
[2020-05-18] MEDS: Furosemide 40 MG TABLET PO SCH (08:45)
[2020-05-18] MEDS: *HR* Insulin Regular U-500 500 UNIT/ML SQ SCH ×3 (08:46→16:48)
[2020-05-18] MEDS: *HR* Amiodarone 200 MG TABLET PO SCH (08:46)
[2020-05-18] MEDS: Insulin LISPRO 300 UNITS/3 ML VIAL SQ SCH ×4 (08:46→22:18)
[2020-05-18] MEDS: Fluconazole 150 MG TABLET PO SCH (08:46)
[2020-05-18] MEDS: Gabapentin 300 MG CAPSULE PO SCH ×3 (08:46→22:19)
[2020-05-18] MEDS: Insulin DETEMIR 100 UNIT/ML X5UNITS SQ SCH ×2 (08:48→22:24)
[2020-05-18] MEDS: *HR* OxyCODONE Immed Rel 5 MG TABLET PO PRN ×2 (08:55→14:41)
[2020-05-18] MEDS: Spironolactone 25 MG TABLET PO SCH (12:15)
[2020-05-18] MEDS ORDERED: *HR* LORazepam 2 MG/ML VIAL IVP ONE (16:06)
[2020-05-18] MEDS ORDERED: diazePAM 10 MG/2 ML SYRINGE IVP PRN (17:01)
[2020-05-18] MEDS: *HR* Warfarin 3 MG TABLET PO SCH (18:09)
[2020-05-19] MEDS: *HR* OxyCODONE Immed Rel 5 MG TABLET PO PRN ×3 (01:28→17:57)
[2020-05-19 05:47] LABS: Basophils % 0.4 %; Eosinophils # 0.3 K/mcL (0.0-0.6); Eosinophils % 4.8 %; Hematocrit 38.1 % (35.3-44.9); Hemoglobin 11.4 g/dL (11.5-15.4); Immature Granulocytes % 0.9 % (0-4); Lymphocytes # 2.4 K/mcL (0.6-4.6); Mean Corpuscular HGB Conc 29.9 g/dL (31.6-35.5); Mean Corpuscular Hemoglobin 25.1 pg (28.0-33.3); Mean Corpuscular Volume 83.9 fL (83.0-100.0); Mean Platelet Volume 11.7 fL (9.4-12.4); Monocytes # 0.6 K/mcL (0.0-1.3); Monocytes % 8.3 %; Neutrophils # 3.5 K/mcL (1.6-8.9); Platelet Count 258 K/mcL (140-400); Red Blood Count 4.54 M/mcL (3.82-4.97); Red Cell Distribution Width 17.7 % (11.5-14.5); Segmented Neutrophils % 50.6 %; White Blood Count 6.9 K/mcL (4.3-11.1)
[2020-05-19 06:04] LABS: Calcium 8.8 mg/dL (8.6-10.3); Potassium 4.3 mEq/L (3.5-5.1)
[2020-05-19] MEDS: Insulin LISPRO 300 UNITS/3 ML VIAL SQ SCH ×4 (08:40→21:06)
[2020-05-19] MEDS: *HR* Insulin Regular U-500 500 UNIT/ML SQ SCH ×3 (08:41→17:20)
[2020-05-19] MEDS: Insulin DETEMIR 100 UNIT/ML X5UNITS SQ SCH ×2 (08:41→20:53)
[2020-05-19] MEDS: Spironolactone 25 MG TABLET PO SCH (10:17)
[2020-05-19] MEDS: Furosemide 40 MG TABLET PO SCH (10:17)
[2020-05-19] MEDS: levETIRAcetam 250 MG TABLET PO SCH ×2 (10:18→20:52)
[2020-05-19] MEDS: Gabapentin 300 MG CAPSULE PO SCH ×3 (10:18→20:49)
[2020-05-19] MEDS: *HR* Amiodarone 200 MG TABLET PO SCH (10:18)
[2020-05-19] MEDS: Metoprolol XL (24 HR) Succ 50 MG TAB.ER.24H PO SCH (10:18)
[2020-05-19] MEDS: Fluconazole 150 MG TABLET PO SCH (10:19)
[2020-05-19] MEDS: Chloraseptic Spray 177 ML BOTTLE MM PRN (12:20)
[2020-05-19] MEDS: *HR* Warfarin 3 MG TABLET PO SCH (17:54)
[2020-05-19] MEDS: Melatonin 3 MG TABLET PO PRN (20:48)
[2020-05-20] MEDS: Spironolactone 25 MG TABLET PO SCH (08:51)
[2020-05-20] MEDS: *HR* Amiodarone 200 MG TABLET PO SCH (08:51)
[2020-05-20] MEDS: *HR* OxyCODONE Immed Rel 5 MG TABLET PO PRN ×3 (08:52→20:46)
[2020-05-20] MEDS: Gabapentin 300 MG CAPSULE PO SCH ×3 (08:52→20:45)
[2020-05-20] MEDS: levETIRAcetam 250 MG TABLET PO SCH ×2 (08:52→20:44)
[2020-05-20] MEDS: *HR* Insulin Regular U-500 500 UNIT/ML SQ SCH ×3 (08:53→16:38)
[2020-05-20] MEDS: Metoprolol XL (24 HR) Succ 50 MG TAB.ER.24H PO SCH (08:53)
[2020-05-20] MEDS: Insulin DETEMIR 100 UNIT/ML X5UNITS SQ SCH ×2 (08:53→20:46)
[2020-05-20] MEDS: Insulin LISPRO 300 UNITS/3 ML VIAL SQ SCH ×4 (08:53→21:06)
[2020-05-20] MEDS: Fluconazole 150 MG TABLET PO SCH (08:53)
[2020-05-20] MEDS: Furosemide 40 MG TABLET PO SCH (08:54)
[2020-05-20] MEDS: *HR* Warfarin 3 MG TABLET PO SCH (17:33)
[2020-05-21] MEDS: *HR* OxyCODONE Immed Rel 5 MG TABLET PO PRN ×2 (04:04→20:19)
[2020-05-21 06:42] LABS: Prothrombin Time 34.7 Seconds (9.4-12.1)
[2020-05-21] MEDS ORDERED: polyethylene glycoL 3350 17 GM POWD.PACK PO PRN (07:23)
[2020-05-21] MEDS: *HR* Insulin Regular U-500 500 UNIT/ML SQ SCH ×3 (08:38→17:24)
[2020-05-21] MEDS: Furosemide 40 MG TABLET PO SCH (09:41)
[2020-05-21] MEDS: Metoprolol XL (24 HR) Succ 50 MG TAB.ER.24H PO SCH (09:41)
[2020-05-21] MEDS: levETIRAcetam 250 MG TABLET PO SCH ×2 (09:44→20:17)
[2020-05-21] MEDS: *HR* Amiodarone 200 MG TABLET PO SCH (09:45)
[2020-05-21] MEDS: Spironolactone 25 MG TABLET PO SCH (09:45)
[2020-05-21] MEDS: Gabapentin 300 MG CAPSULE PO SCH ×3 (09:45→20:18)
[2020-05-21] MEDS: Insulin LISPRO 300 UNITS/3 ML VIAL SQ SCH ×4 (09:46→20:20)
[2020-05-21] MEDS: Insulin DETEMIR 100 UNIT/ML X5UNITS SQ SCH ×2 (09:46→20:19)
[2020-05-21] MEDS: Ondansetron ODT 4 MG TAB.RAPDIS SL PRN (15:30)
[2020-05-21] MEDS ORDERED: *HR* Warfarin 1 MG TABLET PO ONE (18:00)
[2020-05-21] MEDS: Melatonin 3 MG TABLET PO PRN (20:18)
[2020-05-22] MEDS: *HR* OxyCODONE Immed Rel 5 MG TABLET PO PRN ×4 (01:40→21:48)
[2020-05-22] MEDS: Furosemide 40 MG TABLET PO SCH (09:07)
[2020-05-22] MEDS: levETIRAcetam 250 MG TABLET PO SCH ×2 (09:07→21:37)
[2020-05-22] MEDS: Metoprolol XL (24 HR) Succ 50 MG TAB.ER.24H PO SCH (09:08)
[2020-05-22] MEDS: *HR* Amiodarone 200 MG TABLET PO SCH (09:08)
[2020-05-22] MEDS: Spironolactone 25 MG TABLET PO SCH (09:09)
[2020-05-22] MEDS: Insulin DETEMIR 100 UNIT/ML X5UNITS SQ SCH ×2 (09:09→21:47)
[2020-05-22] MEDS: Gabapentin 300 MG CAPSULE PO SCH ×3 (09:09→21:37)
[2020-05-22] MEDS: Insulin LISPRO 300 UNITS/3 ML VIAL SQ SCH ×4 (09:19→21:42)
[2020-05-22] MEDS: *HR* Insulin Regular U-500 500 UNIT/ML SQ SCH ×3 (09:20→17:37)
[2020-05-22] MEDS ORDERED: *HR* Warfarin 1 MG TABLET PO ONE (18:00)
[2020-05-22] MEDS: Melatonin 3 MG TABLET PO PRN (21:49)
[2020-05-23 06:20] LABS: Basophils % 0.6 %; Eosinophils # 0.4 K/mcL (0.0-0.6); Hematocrit 39.6 % (35.3-44.9); Hemoglobin 11.5 g/dL (11.5-15.4); Immature Granulocytes % 1.1 % (0-4); Lymphocytes # 2.6 K/mcL (0.6-4.6); Lymphocytes % 42.7 %; Mean Corpuscular Volume 86.1 fL (83.0-100.0); Mean Platelet Volume 11.1 fL (9.4-12.4); Monocytes # 0.6 K/mcL (0.0-1.3); Monocytes % 9.1 %; Neutrophils # 2.5 K/mcL (1.6-8.9); Platelet Count 244 K/mcL (140-400); Red Cell Distribution Width 18.6 % (11.5-14.5); Segmented Neutrophils % 40.5 %; White Blood Count 6.2 K/mcL (4.3-11.1)
[2020-05-23 06:22] LABS: INR 3.2; Prothrombin Time 35.9 Seconds (9.4-12.1)
[2020-05-23 06:47] LABS: Potassium 4.5 mEq/L (3.5-5.1)
[2020-05-23] MEDS: levETIRAcetam 250 MG TABLET PO SCH ×2 (09:37→20:04)
[2020-05-23] MEDS: *HR* Amiodarone 200 MG TABLET PO SCH (09:37)
[2020-05-23] MEDS: Furosemide 40 MG TABLET PO SCH (09:37)
[2020-05-23] MEDS: Gabapentin 300 MG CAPSULE PO SCH ×3 (09:37→20:04)
[2020-05-23] MEDS: Spironolactone 25 MG TABLET PO SCH (09:38)
[2020-05-23] MEDS: Insulin DETEMIR 100 UNIT/ML X5UNITS SQ SCH ×2 (09:38→20:26)
[2020-05-23] MEDS: Metoprolol XL (24 HR) Succ 50 MG TAB.ER.24H PO SCH (09:38)
[2020-05-23] MEDS: *HR* Insulin Regular U-500 500 UNIT/ML SQ SCH ×3 (09:40→17:42)
[2020-05-23] MEDS: Insulin LISPRO 300 UNITS/3 ML VIAL SQ SCH ×7 (09:48→20:26)
[2020-05-23] MEDS: *HR* OxyCODONE Immed Rel 5 MG TABLET PO PRN ×2 (16:00→21:37)
[2020-05-23] MEDS ORDERED: Bisacodyl 10 MG RECTAL SUPPOSITORY RC PRN (16:47)
[2020-05-23] MEDS ORDERED: Lactulose Oral Soln 20 GM/30 ML UDC PO PRN (16:48)
[2020-05-23] MEDS: Sennosides/Docusate Sodium TABLET PO SCH (20:03)
[2020-05-24] MEDS: Melatonin 3 MG TABLET PO PRN (03:00)
[2020-05-24] MEDS: *HR* OxyCODONE Immed Rel 5 MG TABLET PO PRN ×2 (03:00→10:02)
[2020-05-24 06:26] LABS: INR 2.8; Prothrombin Time 31.6 Seconds (9.4-12.1)
[2020-05-24] MEDS: *HR* Insulin Regular U-500 500 UNIT/ML SQ SCH ×3 (09:54→17:32)
[2020-05-24] MEDS: Insulin LISPRO 300 UNITS/3 ML VIAL SQ SCH ×4 (09:54→21:10)
[2020-05-24] MEDS: Insulin DETEMIR 100 UNIT/ML X5UNITS SQ SCH ×2 (09:58→21:09)
[2020-05-24] MEDS: levETIRAcetam 250 MG TABLET PO SCH ×2 (10:03→20:58)
[2020-05-24] MEDS: Sennosides/Docusate Sodium TABLET PO SCH ×2 (10:03→21:01)
[2020-05-24] MEDS: Metoprolol XL (24 HR) Succ 50 MG TAB.ER.24H PO SCH (10:04)
[2020-05-24] MEDS: Furosemide 40 MG TABLET PO SCH (10:04)
[2020-05-24] MEDS: Spironolactone 25 MG TABLET PO SCH (10:04)
[2020-05-24] MEDS: *HR* Amiodarone 200 MG TABLET PO SCH (10:04)
[2020-05-24] MEDS: Gabapentin 300 MG CAPSULE PO SCH ×3 (10:04→21:01)
[2020-05-24] MEDS ORDERED: *HR* Warfarin 1 MG TABLET PO ONE (18:00)
[2020-05-25 07:22] LABS: INR 2.2; Prothrombin Time 24.7 Seconds (9.4-12.1)
[2020-05-25] MEDS: Insulin LISPRO 300 UNITS/3 ML VIAL SQ SCH ×4 (08:48→20:49)
[2020-05-25] MEDS: levETIRAcetam 250 MG TABLET PO SCH ×2 (08:49→20:47)
[2020-05-25] MEDS: *HR* Insulin Regular U-500 500 UNIT/ML SQ SCH ×3 (08:49→17:22)
[2020-05-25] MEDS: Gabapentin 300 MG CAPSULE PO SCH ×3 (08:50→20:48)
[2020-05-25] MEDS: *HR* Amiodarone 200 MG TABLET PO SCH (08:50)
[2020-05-25] MEDS: Spironolactone 25 MG TABLET PO SCH (08:50)
[2020-05-25] MEDS: Metoprolol XL (24 HR) Succ 50 MG TAB.ER.24H PO SCH (08:50)
[2020-05-25] MEDS: Furosemide 40 MG TABLET PO SCH (08:50)
[2020-05-25] MEDS: *HR* OxyCODONE Immed Rel 5 MG TABLET PO PRN ×3 (08:50→23:38)
[2020-05-25] MEDS: Sennosides/Docusate Sodium TABLET PO SCH ×2 (08:50→20:48)
[2020-05-25] MEDS: Insulin DETEMIR 100 UNIT/ML X5UNITS SQ SCH ×2 (08:51→20:48)
[2020-05-25] MEDS: *HR* LORazepam 0.5 MG TABLET PO PRN (15:27)
[2020-05-25] MEDS ORDERED: *HR* Warfarin 2 MG TABLET PO ONE (18:00)
[2020-05-25] MEDS: *HR* LORazepam 2 MG/ML VIAL IVP PRN (18:25)
[2020-05-25] MEDS: Melatonin 3 MG TABLET PO PRN (23:30)
[2020-05-26 07:18] LABS: Basophils % 0.6 %; Eosinophils # 0.5 K/mcL (0.0-0.6); Eosinophils % 6.6 %; Hematocrit 41.9 % (35.3-44.9); Hemoglobin 12.5 g/dL (11.5-15.4); Immature Granulocytes % 0.6 % (0-4); Lymphocytes # 2.4 K/mcL (0.6-4.6); Lymphocytes % 35.1 %; Mean Corpuscular HGB Conc 29.8 g/dL (31.6-35.5); Mean Corpuscular Hemoglobin 25.1 pg (28.0-33.3); Mean Platelet Volume 10.8 fL (9.4-12.4); Monocytes # 0.5 K/mcL (0.0-1.3); Monocytes % 7.4 %; Neutrophils # 3.5 K/mcL (1.6-8.9); Platelet Count 223 K/mcL (140-400); Red Blood Count 4.99 M/mcL (3.82-4.97); Red Cell Distribution Width 18.8 % (11.5-14.5); Segmented Neutrophils % 49.7 %; White Blood Count 6.9 K/mcL (4.3-11.1)
[2020-05-26 07:31] LABS: INR 1.8; Prothrombin Time 20.4 Seconds (9.4-12.1)
[2020-05-26 07:46] LABS: BUN/Creatinine Ratio 24 (6-26); Blood Urea Nitrogen 26 mg/dL (6-20); Calcium 9.3 mg/dL (8.6-10.3); Carbon Dioxide 37 mEq/L (23-29); Chloride 96 mEq/L (98-107); Glucose 110 mg/dL (70-105); Osmolality,Calculated 293 (280-300); Sodium 139 mEq/L (136-145); eGFR For African Americans > 60 (> 60); eGFR For Non-African Americans 53 (> 60)
[2020-05-26] MEDS: Furosemide 40 MG TABLET PO SCH (10:27)
[2020-05-26] MEDS: Spironolactone 25 MG TABLET PO SCH (10:27)
[2020-05-26] MEDS: *HR* Amiodarone 200 MG TABLET PO SCH (10:28)
[2020-05-26] MEDS: levETIRAcetam 250 MG TABLET PO SCH ×2 (10:28→21:34)
[2020-05-26] MEDS: Sennosides/Docusate Sodium TABLET PO SCH ×2 (10:29→21:34)
[2020-05-26] MEDS: Gabapentin 300 MG CAPSULE PO SCH ×3 (10:29→21:33)
[2020-05-26] MEDS: Metoprolol XL (24 HR) Succ 50 MG TAB.ER.24H PO SCH (10:29)
[2020-05-26] MEDS: Insulin LISPRO 300 UNITS/3 ML VIAL SQ SCH ×4 (10:34→21:35)
[2020-05-26] MEDS: *HR* Insulin Regular U-500 500 UNIT/ML SQ SCH ×3 (10:35→17:03)
[2020-05-26] MEDS: Insulin DETEMIR 100 UNIT/ML X5UNITS SQ SCH ×2 (10:39→21:35)
[2020-05-26] MEDS ORDERED: *HR* Warfarin 2 MG TABLET PO ONE (18:00)
[2020-05-26] MEDS: *HR* OxyCODONE Immed Rel 5 MG TABLET PO PRN (21:32)
[2020-05-26] MEDS: *HR* LORazepam 0.5 MG TABLET PO PRN (21:35)
[2020-05-26] MEDS: Melatonin 3 MG TABLET PO PRN (22:12)
[2020-05-27 07:07] LABS: Prothrombin Time 20.6 Seconds (9.4-12.1)
[2020-05-27 08:05] LABS: INR 1.8
[2020-05-27] MEDS: Sennosides/Docusate Sodium TABLET PO SCH ×2 (08:41→21:09)
[2020-05-27] MEDS: levETIRAcetam 250 MG TABLET PO SCH ×2 (08:42→21:10)
[2020-05-27] MEDS: Furosemide 40 MG TABLET PO SCH (08:43)
[2020-05-27] MEDS: *HR* Amiodarone 200 MG TABLET PO SCH (08:43)
[2020-05-27] MEDS: Gabapentin 300 MG CAPSULE PO SCH ×3 (08:43→21:10)
[2020-05-27] MEDS: Metoprolol XL (24 HR) Succ 50 MG TAB.ER.24H PO SCH (08:44)
[2020-05-27] MEDS: Spironolactone 25 MG TABLET PO SCH (08:44)
[2020-05-27] MEDS: *HR* Insulin Regular U-500 500 UNIT/ML SQ SCH ×3 (08:46→17:57)
[2020-05-27] MEDS: Insulin DETEMIR 100 UNIT/ML X5UNITS SQ SCH ×2 (08:46→21:11)
[2020-05-27] MEDS: Insulin LISPRO 300 UNITS/3 ML VIAL SQ SCH ×4 (08:58→21:12)
[2020-05-27] MEDS: *HR* OxyCODONE Immed Rel 5 MG TABLET PO PRN ×2 (14:18→21:10)
[2020-05-27] MEDS ORDERED: *HR* Warfarin 2 MG TABLET PO ONE (18:00)
[2020-05-27] MEDS: *HR* LORazepam 0.5 MG TABLET PO PRN (18:11)
[2020-05-27] MEDS: Melatonin 3 MG TABLET PO PRN (21:10)
[2020-05-28] MEDS: *HR* Insulin Regular U-500 500 UNIT/ML SQ SCH ×3 (08:43→17:18)
[2020-05-28] MEDS: levETIRAcetam 250 MG TABLET PO SCH ×2 (08:54→20:49)
[2020-05-28] MEDS: Metoprolol XL (24 HR) Succ 50 MG TAB.ER.24H PO SCH (08:54)
[2020-05-28] MEDS: Gabapentin 300 MG CAPSULE PO SCH ×3 (08:54→20:50)
[2020-05-28] MEDS: Insulin LISPRO 300 UNITS/3 ML VIAL SQ SCH ×4 (08:55→20:52)
[2020-05-28] MEDS: Spironolactone 25 MG TABLET PO SCH (08:55)
[2020-05-28] MEDS: *HR* Amiodarone 200 MG TABLET PO SCH (08:55)
[2020-05-28] MEDS: Insulin DETEMIR 100 UNIT/ML X5UNITS SQ SCH ×2 (08:55→20:51)
[2020-05-28] MEDS: Sennosides/Docusate Sodium TABLET PO SCH ×2 (08:55→20:50)
[2020-05-28] MEDS: Furosemide 40 MG TABLET PO SCH (08:55)
[2020-05-28 10:04] LABS: INR 2.1; Prothrombin Time 23.8 Seconds (9.4-12.1)
[2020-05-28] MEDS: *HR* OxyCODONE Immed Rel 5 MG TABLET PO PRN ×3 (13:06→23:05)
[2020-05-28] MEDS ORDERED: *HR* Warfarin 2 MG TABLET PO ONE (18:00)
[2020-05-28] MEDS: Melatonin 3 MG TABLET PO PRN (20:50)
[2020-05-28] MEDS: Ondansetron ODT 4 MG TAB.RAPDIS SL PRN (23:05)
[2020-05-28] MEDS: *HR* LORazepam 2 MG/ML VIAL IVP PRN (23:34)
[2020-05-28 23:42] VITALS: BP 139/68
[2020-05-29] MEDS ORDERED: *HR* LORazepam 2 MG/ML VIAL ONE (00:44)
[2020-05-29] MEDS: *HR* LORazepam 2 MG/ML VIAL IVP ONE ×2 (00:52→02:23)
[2020-05-29] MEDS ORDERED: 0.9 % Sodium Chloride 1,000 ML ONE (01:49)
== END 2020-05-29 02:35 | disposition short-term general hospital (02) | DRG 945 ==
LOC: INPPIK 18:35
PROVIDERS: ADMIT Family Medicine; ATTEND Family Medicine